=== PATIENT | male | born 1925 | race Caucasian/White ===

== ENCOUNTER 2016-12-01 03:25 | Inpatient (IN) | payer MEDICARE, OTHER ==
[~2016-12-01] VITALS: Ht 177.8 cm; Wt 87.7 kg
[2016-12-01] MEDS ORDERED: SODIUM CHLORIDE 0.9% 1L BAG IV* STA (03:38)
[2016-12-01] MEDS ORDERED: CEFEPIME 2GM/50 ML (PMX) 50 ML IVPB STA (03:38)
[2016-12-01] MEDS ORDERED: VANCOMYCIN 1 GM (PMX) 250 ML IVPB ONE (04:00)
[2016-12-01 04:22] LABS: ADD SCAN DIFF NO
[2016-12-01 04:27] LABS: ABNORMAL IP MESSAGE 1; HEMATOCRIT 39.6 % (42.0-52.0); HEMOGLOBIN 13.2 g/dl (14.0-18.0); MEAN CORPUSCULAR HEMOGLOBIN 31.8 pg (29.0-33.0); MEAN CORPUSCULAR HGB CONC 33.3 g/dl (32.0-37.0); MEAN CORPUSCULAR VOLUME 95.4 fl (82.0-101.0); MEAN PLATELET VOLUME 8.9 fl (7.4-10.4); PLATELET COUNT 153 10^3/UL (140-415); RED BLOOD COUNT 4.15 10^6/ul (4.70-6.10); RED CELL DISTRIBUTION WIDTH 14.8 % (11.5-14.5); WHITE BLOOD COUNT 6.9 10^3/ul (4.8-10.8)
[2016-12-01 04:28] LABS: ADD UMIC YES; URINE BLOOD (Dip) 3+ (NEGATIVE); URINE COLOR DK. RED (YELLOW); URINE KETONES (Dip) 3+ (NEGATIVE); URINE LEUKOCYTE ESTERASE (Dip) 3+ (NEGATIVE); URINE NITRITE (Dip) POSITIVE (NEGATIVE); URINE TOTAL PROTEIN (Dip) 4+ (NEGATIVE); URINE UROBILINOGEN (Dip) >8.0 E.U./dL (0.1-1.0)
[2016-12-01 04:36] LABS: URINE BILIRUBIN (Dip) NEGATIVE (NEGATIVE)
[2016-12-01 04:38] LABS: SQUAMOUS EPITHELIAL CELL,UR OCCASIONAL; URINE RBCS >200 /HPF (0)
[2016-12-01 04:39] LABS: BACTERIA,URINE MODERATE
[2016-12-01 04:45] LABS: ALBUMIN 3.3 g/dl (3.3-4.9)
[2016-12-01 04:48] LABS: CREATININE 1.11 mg/dl (0.61-1.24)
--- NOTE | 2016-12-01 04:48 | ERA ---
ER Documentation Chief Complaint Date/Time DATE: 12/01/16 TIME: 04:42 Chief Complaint ALOC, VOMITING WITH BLOOD X 1, PATIENT PULLED OUT CATHETER PER EMS HPI This is an 89-year-old group home patient sent for fever with altered level of consciousness. Patient apparently had an indwelling Mandel catheter that he pulled out. Patient has some dementia but he did say that he pulled on his catheter and had some bleeding from the penis he also says that he is having some dysuria since he did this. The group home reports that he vomited once with blood streaks. The patient denies this however he does have some dementia. Currently he is denying any chest pain breathing difficulty abdominal pain diarrhea. Is a very poor historian. ROS All systems reviewed and are negative except as per history of present illness. Medications Home Meds Reported Medications Famotidine/Ca Carb/Mag Hydrox (TUMS DUAL ACTION TABLET CHEW) 1 Each Tab.chew, 1 EACH PO, TAB.CHEW 12/01/16 Guaifenesin-Dextromethorphan* (Robitussin* DM) 100MG/10MG/5ML Syrup, 5 ML PO Q8 , ML 12/01/16 Zolpidem Tartrate* (Zolpidem Tartrate*) 5 Mg Tablet, 5 MG PO QHS Y for INSOMNIA , #30 TAB 12/01/16 Albuterol Sulfate* (Albuterol Sulfate* Neb) 0.083%-3 Ml Neb, 2.5 MG NEB Q4H for SHORTNESS OF BREATH, #30 VIAL 12/01/16 Mirtazapine* (Remeron*) 15 Mg Tablet, 15 MG PO HS for DEPRESSION , TAB 12/01/16 Clonazepam* (Klonopin*) 0.5 Mg Tab, 0.25 MG PO BID for ANXIETY, TAB 12/01/16 Allergies Allergies: Coded Allergies: amlodipine (Verified Allergy, Unknown, 12/01/16) PMhx/Soc Hx Respiratory Disorders: Yes (pneumonia, copd) Hx Cardiac Disorders: Yes (htn, afib) Hx Psychiatric Problems: Yes (anxiety) Hx Miscellaneous Medical Probl: Yes (bph, renal insufficiency, hypothyroidism) Hx Alcohol Use: No Hx Substance Use: No Hx Tobacco Use: No Smoking Status: Unknown if ever smoked FmHx Unable to clearly obtain due to his dementia Family History: No coronary disease Physical Exam Vitals Vital Signs Date Time Temp Pulse Resp B/P Pulse Ox O2 Delivery O2 Flow Rate FiO2 12/01/16 05:16 72 16 132/50 98 Nasal Cannula 2.0 12/01/16 04:21 71 16 106/37 96 Nasal Cannula 2.0 12/01/16 04:21 Nasal Cannula 2 12/01/16 03:31 102.3 73 13 114/101 92 Physical Exam Const: Well-developed, well-nourished Head: Atraumatic, normocephalic Eyes: Normal Conjunctiva, PERRLA, EOMI, normal sclera, no nystagmus ENT: Normal External Ears, Nose and Mouth, moist mucus membranes. Neck: Full range of motion. No meningismus, no lymphadenopathy. Resp: Clear to auscultation bilaterally, no wheezing, rhonchi, rales Cardio: Regular rate and rhythm, no murmurs, S1 S2 present Abd: Soft, some mild suprapubic tenderness 4, non distended. Normal bowel sounds, no guarding or rebound, no pulsitile abdominal masses or bruits, no blood at the urethral meatus Skin: No petechiae or rashes, no ecchymosis , no maculopapular rash Back: No midline or flank tenderness Ext: No cyanosis, or edema, FROM x 4, normal inspection, neurovascularly intact x 4 Neur: Awake and alert, STR 5/5 x 4, sensation intact x 4, no focal findings, cerebellum intact Psych: Normal Mood and Affect Result Diagram: 12/01/16 0350 12/01/16 0350 Results 24 hrs Laboratory Tests Test 12/01/16 03:50 12/01/16 04:07 12/01/16 05:05 White Blood Count 6.910^3/ul Red Blood Count 4.1510^6/ul Hemoglobin 13.2g/dl Hematocrit 39.6% Mean Corpuscular Volume 95.4fl Mean Corpuscular Hemoglobin 31.8pg Mean Corpuscular Hemoglobin Concent 33.3g/dl Red Cell Distribution Width 14.8% Platelet Count 95160^3/UL Mean Platelet Volume 8.9fl Neutrophils % 85.0% Band Neutrophils % 6.0% Lymphocytes % 1.0% Monocytes % 2.0% Eosinophils % 6.0% Neutrophils # 5.910^3/ul Lymphocytes # 0.110^3/ul Monocytes # 0.110^3/ul Eosinophils # 0.410^3/ul Sodium Level 138mmol/L Potassium Level 4.0mmol/L Chloride Level 103mmol/L Carbon Dioxide Level 24mmol/L Anion Gap 15 Blood Urea Nitrogen 21mg/dl Creatinine 1.11mg/dl Glucose Level 84mg/dl Lactic Acid Level 3.7mmol/L 3.0mmol/L Calcium Level 8.8mg/dl Total Bilirubin 1.0mg/dl Direct Bilirubin 0.00mg/dl Indirect Bilirubin 1.0mg/dl Aspartate Amino Transf (AST/SGOT) 19IU/L Alanine Aminotransferase (ALT/SGPT) 24IU/L Alkaline Phosphatase 79IU/L Troponin I 0.019ng/ml Total Protein 6.6g/dl Albumin 3.3g/dl Globulin 3.30g/dl Albumin/Globulin Ratio 1.00 Urine Color DK. RED Urine Clarity TURBID Urine pH 8.0 Urine Specific [place] 1.010 Urine Ketones 3+ Urine Nitrite POSITIVE Urine Bilirubin NEGATIVE Urine Urobilinogen >8.0 E.U./dL Urine Leukocyte Esterase 3+ Urine Microscopic RBC >200/HPF Urine Microscopic WBC >50/HPF Urine Squamous Epithelial Cells OCCASIONAL Urine Amorphous Phosphates FEW Urine Bacteria MODERATE Urine Hemoglobin 3+ Urine Glucose 0.1%% Urine Total Protein 4+ Current Medications Medications (Trade) Dose Ordered Sig/Wyatt Route PRN Reason Start Time Stop Time Status Last Admin Dose Admin Sodium Chloride 2510 ml 2,510 ml BOLUS OVER 2 HOURS STAT IV* 12/01/16 03:38 12/01/16 03:41 DC 12/01/16 04:12 Cefepime HCl 50 ml @ 100 mls/hr ONCE STAT IVPB 12/01/16 03:38 12/01/16 04:07 DC 12/01/16 04:14 Vancomycin HCl (Vancocin) 250 ml @ 125 mls/hr ONCE ONCE IVPB 12/01/16 04:00 12/01/16 05:59 12/01/16 04:47 Procedures/MDM EKG: Rate/Rhythm: Normal sinus rhythm left axis deviation right bundle branch block QRS, ST, QT: NORMAL [place], QRS, QT] Impression: Abnormal l EKG PROCEDURE: XR Chest. CLINICAL INDICATION: Sepsis TECHNIQUE: Portable single view of the chest COMPARISON: None. FINDINGS: Cardiomegaly is seen. The aorta is ectatic and tortuous. There is prominence of the right greater than left paratracheal soft tissues. Rounded retrocardiac opacity likely represents a moderately large hiatal hernia. Slight bibasilar crowding. No definite acute infiltrate, pleural effusion, or overt congestive heart failure. Mild degenerative change of the spine. IMPRESSION: Cardiomegaly and ectatic aorta. Prominent right greater left paratracheal soft tissues may be due to ectatic vasculature, goiter, or adenopathy. CT could be obtained as indicated clinically. Probable goiter. Slight bibasilar crowding. RPTAT: HLBE Physician Zelalem Date Time Electronically viewed and signed by Beatriz Constantino Physician on 12/01/2016 05 :31 LE/ CC: EDUARD FRANKLIN DO Admit MDM: Patient's infectious symptoms have not stabilized and the patient is at risk of rapid decompensation. The patient will be admitted for careful hydration, antibiotic therapy, and infectious source control. Severe Sepsis criteria: Infectious source: urine End organ damage indicated by: [] Lactate > 2.0 mmol/L Hypotension (SBP < 90 or >40 mmHG drop or MAP < 65) Acute Resp Failure (sat < 92% w/o oxygen) Stone Dresser > 2.0 INR > 1.5 Plt < 100 Bili > 2 Sepsis Management: Time of recognition of severe sepsis/septic shock: [05 40 Within 3 hours of recognition: Blood cultures x 2 before broad-spectrum antibiotics: []Yes 30 ml/kg NS bolus []Completed Initial lactate 3.7 Repeat lactate 3.0 Septic Shock Assessment: Any lactic acid > 4.0 []No Persistent hypotension (SBP < 90 or 40 mmHg drop, MAP < 65) despite 30 mL/kg IV fluid bolus []No Persistent Hypotension Treatment: Comfort care []No Hypotension caused by: pt. baseline, med-induced, erroneous value, condition other than infection []No Refusal by patient/decision maker for: blood draw, IVF, Antibiotics, Pressors [* ]No Accepting Care Team Current data and ongoing care discussed. Time: [] Admitting Physician: patrick Filter Changing Technician(s): Outstanding Data: []None Critical Care Time: 35 minutes Treatments/Evaluations: Close monitoring and treatment of unstable vital signs, cardiorespiratory, and neurologic status, while maintaining tight balance of fluid, respiratory, and cardiac interventions. This includes the administration of emergency fluid management while maintaining close respiratory support as well as the provision of immediate and broad-spectrum antibiotic therapy, while performing a simultaneous assessment for possible sources in order to direct targeted therapy. This time includes discussing the case with the patient and the patient's family. This time also includes the consideration for invasive and chemical support to prevent cardiopulmonary collapse. This time does not include all procedures stated elsewhere in this record. This time also includes reviewing old records, labs and radiological studies. This time includes examining and re-examining the patient. Additionally, this time also includes arranging care with admitting and consulting physicians. Departure Diagnosis: Primary Impression: Sepsis Qualified Code: A41.9 - Sepsis, due to unspecified organism Additional Impression: Urinary tract infection Qualified Code: N30.01 - Acute cystitis with hematuria Condition: Stable EDUARD FRANKLIN DO December 01, 2016 04:48
[2016-12-01 04:49] LABS: CALCIUM 8.8 mg/dl (8.4-10.2); TOTAL PROTEIN 6.6 g/dl (6.1-8.1)
[2016-12-01 04:57] LABS: EOSINOPHILS # 0.4 10^3/ul (0.0-0.5); LYMPHOCYTES # 0.1 10^3/ul (0.8-2.9); MONOCYTE # 0.1 10^3/ul (0.3-0.9); NEUTROPHIL # 5.9 10^3/ul (1.6-7.5)
[2016-12-01 05:00] LABS: TROPONIN-I 0.019 ng/ml (0.00-0.12)
--- NOTE | 2016-12-01 05:31 | RADRPT ---
PROCEDURE: XR Chest. CLINICAL INDICATION: Sepsis TECHNIQUE: Portable single view of the chest COMPARISON: None. FINDINGS: Cardiomegaly is seen. The aorta is ectatic and tortuous. There is prominence of the right greater than left paratracheal soft tissues. Rounded retrocardiac opacity likely represents a moderately la rge hiatal hernia. Slight bibasilar crowding. No definite acute infiltrate, pleural effusion, or o vert congestive heart failure. Mild degenerative change of the spine. IMPRESSION: Cardiomegaly and ectatic aorta. Prominent right greater left paratracheal soft tissues may be due t o ectatic vasculature, goiter, or adenopathy. CT could be obtained as indicated clinically. Probab le goiter. Slight bibasilar crowding. RPTAT: HLBE Physician Zelalem Date Time Electronically viewed and signed by Beatriz Constantino Physician on 12/01/2016 05:31 LE/
[2016-12-01] MEDS ORDERED: ZOLP5TAB7 PO (05:45)
[2016-12-01] MEDS ORDERED: MIRT15TA PO (05:45)
[2016-12-01] MEDS ORDERED: UDROBDM PO (05:45)
[2016-12-01] MEDS ORDERED: FAMO1TAB3 PO (05:45)
[2016-12-01] MEDS ORDERED: CLON-429 PO (05:45)
[2016-12-01] MEDS ORDERED: ALBU2.5V3 NEB (05:45)
[2016-12-01] MEDS ORDERED: SOD CHLORIDE 0.9% 1,000 ML IV SCH (05:58)
[2016-12-01] MEDS ORDERED: ACETAMINOPHEN 500 MG TAB PO STA (05:58)
[2016-12-01] MEDS ORDERED: GABA300C16 PO (06:00)
[2016-12-01] MEDS ORDERED: TAMS0.4C2 PO (06:00)
[2016-12-01] MEDS ORDERED: HYDR-3672 PO (06:00)
[2016-12-01] MEDS ORDERED: ATOR10TA65 PO (06:00)
[2016-12-01] MEDS ORDERED: ONDANSETRON 4 MG INJ IV PRN ×2 (06:00→09:30)
[2016-12-01] MEDS ORDERED: MAG-19 PO (06:00)
[2016-12-01] MEDS ORDERED: HALOPERIDOL 5 MG INJ IM ONE (06:00)
[2016-12-01] MEDS ORDERED: ATEN50TA PO (06:00)
[2016-12-01] MEDS ORDERED: ACETAMINOPHEN 325 MG TAB PO PRN ×2 (06:00→09:30)
[2016-12-01] MEDS ORDERED: MULT-105 PO (06:00)
[2016-12-01] MEDS ORDERED: CLON1PAT2 TD (06:00)
[2016-12-01] MEDS ORDERED: UDMYL PO (06:00)
[2016-12-01] MEDS ORDERED: LEVO75TA5 PO (06:00)
[2016-12-01 06:01] LABS: INR 1.17; PT RATIO 1.2
[2016-12-01 06:02] LABS: PARTIAL THROMBOPLASTIN TIME 27.7 Sec (25.0-35.0)
[2016-12-01] MEDS ORDERED: LEVO750T25 PO (06:06)
[2016-12-01 06:10] VITALS: TEMP 101
--- NOTE | 2016-12-01 08:33 | HP ---
DATE OF ADMISSION: 12/01/2016 TIME SEEN: 6:30 a.m. CHIEF COMPLAINT: Fever, altered mentation, and vomiting blood. HISTORY OF PRESET ILLNESS: The patient is an 89-year-old male with a history of hypertension, AFib, COPD, anxiety, BPH, hypothyroidism who was sent from a long term facility for altered mentati on and fever. The patient also has dementia and he is at times hard to understand, so information h as also been gathered from the chart review and from the ER physician. The patient also reported crawford ambreen had episodes of vomiting blood. He also pulled out his Mandel catheter and reportedly there was some bleeding from his penis. When the patient presented to the ER, he was febrile with a temperature of 102.3 and his oxygen satu ration was 92% on room air. Laboratory values show his CBC and CMP are within acceptable range. Hi s initial lactic acid of 3.7, repeat was 3. Urinalysis is consistent with a UTI. Chest x-ray shows cardiomegaly and ectatic aorta. A prominent right greater than left paratracheal soft tissue may b e due to ectopic vasculature, goiter, or adenopathy. The patient was started on vancomycin and cefe pime and was started on weight-based IV fluids. He was also given 1 g of Tylenol. REVIEW OF SYSTEMS: Unable to fully assess, but negative except as mentioned in the HPI. PAST MEDICAL HISTORY: As per HPI. SOCIAL HISTORY: Unknown. ALLERGIES: AMLODIPINE. MEDICATIONS: 1. Tamsulosin. 2. Albuterol. 3. Atenolol. 4. Lipitor. 5. Clonidine patch. 6. Hydralazine. 7. Klonopin. 8. Gabapentin. 9. Mirtazapine. 10. Ambien. 11. Robitussin 12. Mylanta. 13. Levothyroxine. PHYSICAL EXAMINATION: VITAL SIGNS: Blood pressure 130/64, heart rate 80, respiratory rate 16, temperature 101, oxygen sat uration 100% on 2 L. GENERAL: The patient lying in bed, initially was sleepy, but arousable. Not fully oriented. HEENT: No obvious head deformity. Extraocular muscles intact. CARDIOVASCULAR: Regular rate and rhythm with no extra sounds. LUNGS: Slightly diminished breath sounds anteriorly, but without any wheezing, rhonchi, or rales. ABDOMEN: Soft. There is some tenderness diffusely with no guarding, no rebound tenderness. No rig idity. EXTREMITIES: No edema. NEUROLOGIC: No focal deficits. LABORATORY DATA: Pertinent positives results as mentioned in the HPI. IMAGING: Chest x-ray with results as mentioned in the HPI. IMPRESSION: 1. Sepsis, secondary to urinary tract infection. 2. Altered mentation, secondary to above. Note that the patient does have a history of dementia. 3. History of hypertension. 4. History of atrial fibrillation. 5. History of BPH. 6. History of hypothyroidism. 7. History of chronic obstructive pulmonary disease. PLAN: The patient will be placed on antibiotics. We will follow up on the blood culture and urine culture results. We will trend his lactic acid. He will receive IV fluids. We will continue his h ome medication with adjustment as needed. The patient does have a history of dementia, and I am not quite sure what his baseline is or whether or not there is a significant change in his altered ment ation. Based on the clinical course and trying to get a hold of family, will consider imaging his b rain. Further workup and management per clinical course. Dictated By: WILBERTO BRANDON/TROY Conf#: [id number] DID#: [id number]
[2016-12-01] MEDS ORDERED: LORAZEPAM 2 MG INJ IV PRN (09:30)
[2016-12-01] MEDS: ATENOLOL 50 MG TAB PO SCH (09:30)
[2016-12-01] MEDS ORDERED: morphine 2 MG INJ IV PRN (09:30)
[2016-12-01] MEDS ORDERED: ALBUTEROL/IPRATROPIUM (NEB) 3 ML AMP HHN PRN (09:30)
[2016-12-01] MEDS ORDERED: NACL 0.9% 3 ML SYG IV SCH (09:30)
[2016-12-01] MEDS ORDERED: ZOLPIDEM 5 MG TAB PO PRN (09:30)
[2016-12-01] MEDS: clonAZEPAM 0.5 MG TAB PO SCH ×2 (09:30→21:35)
[2016-12-01] MEDS: ALBUTEROL 0.083% (NEB) 2.5 MG/3 ML AMP NEB SCH ×4 (09:56→20:20)
[2016-12-01] MEDS ORDERED: AL HYDROX/MG HYDROX/SIMETH 30 ML CUP PO SCH (12:00)
[2016-12-01 14:16] VITALS: BP 132/60; PULSE 65; RESP 18
[2016-12-01 16:05] VITALS: Ht 177.8 cm; Wt 87.7 kg
[2016-12-01] MEDS: AL HYDROX/MG HYDROX/SIMETH 30 ML CUP PO SCH ×3 (17:00→21:41)
--- NOTE | 2016-12-01 18:12 | CONS ---
DATE OF ADMISSION: 12/01/2016 DATE OF CONSULTATION: 12/01/2016 TYPE OF CONSULTATION: Infectious Disease. REASON FOR CONSULTATION: Antibiotic management. HISTORY OF PRESENT ILLNESS: Catrachito Willssin is an 89-year-old male with numerous problems who comes in with fever and altered mentation as well as vomiting of blood. His problems include: 1. Hypertension. 2. Atrial fibrillation. 3. COPD. 4. Anxiety. 5. Benign prostatic hypertrophy. 6. Hypothyroidism. The patient was sent from the senior care facility with as noted fever and altered mentation. 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 He had episodes of vomiting blood. He also pulled out his Mandel cathet er. In the emergency room, his temperature was 102.3, O2 saturation was 92% on room air. His lacti c acid was 3.7. White count was 6.9, H and H of 13.2 and 39.6, platelet count 153,000. BUN and cre atinine 21/1.1. Urinalysis showed 3+ leukocyte esterase, greater than 50 white cells per high-power field and greater than 200 RBCs. A chest x-ray showed cardiomegaly and ectasia of the aorta, promi nent right greater than left paratracheal soft tissues may be due to ectatic vasculature, adenopathy , probable goiter, slight bibasilar crowding. PAST MEDICAL HISTORY: As outlined. FAMILY HISTORY: Noncontributory. SOCIAL HISTORY: Not known. MEDICATIONS: Per chart. ALLERGIES: NONE TO PENICILLIN, SULFA OR FOODS. HE IS ALLERGIC TO AMLODIPINE. REVIEW OF SYSTEMS: As per HPI. PHYSICAL EXAMINATION: GENERAL: The patient is an elderly appearing male who is confused, sleepy but arousable, in no acut e distress. VITAL SIGNS: His temperature max is 102.3. SKIN: Without generalized rash. HEENT: Within normal limits. NECK: Supple. LYMPH NODES: None palpable. CHEST: Decreased breath sounds at the bases. HEART: Without murmur or gallop. ABDOMEN: Soft, slightly tender without organosplenomegaly or masses. EXTREMITIES: Without cyanosis, clubbing, or edema. RECTAL AND GENITAL: Deferred. NEUROLOGIC: No focal neurological abnormalities. LABORATORY DATA: As noted. IMPRESSION AND PLAN: The patient comes in with sepsis secondary to urinary tract infection. He was started on vancomycin and cefepime. There is nothing long-term. We will continue him on cefepime 1 gram q.12h. I will dictate my findings to the hospitalist. Dictated By: LANA VINCENT MD, JD/TROY Conf#: [id number] DID#: [id number]
[2016-12-01] MEDS: GUAIFENESIN/DM 5ML CUP PO SCH ×2 (18:25→21:45)
[2016-12-01] MEDS ORDERED: CEFEPIME 1GM/50 ML (PMX) 50 ML IVPB SCH (18:30)
[2016-12-01 19:35] VITALS: BP 135/63; RESP 20
[2016-12-01] MEDS: ATORVASTATIN 10 MG TAB PO SCH (21:34)
[2016-12-01] MEDS: MIRTAZAPINE 15 MG TAB PO SCH (21:35)
[2016-12-01 21:40] VITALS: BP 109/55; PULSE 68
[2016-12-02] MEDS: ALBUTEROL 0.083% (NEB) 2.5 MG/3 ML AMP NEB SCH ×6 (01:34→20:05)
[2016-12-02 05:38] LABS: ADD SCAN DIFF NO
[2016-12-02 05:40] LABS: BASOPHILS % 0.1 % (0.0-2.0); EOSINOPHILS # 0.1 10^3/ul (0.0-0.5); EOSINOPHILS % 0.3 % (0.0-7.0); HEMOGLOBIN 10.2 g/dl (14.0-18.0); LYMPHOCYTES # 1.2 10^3/ul (0.8-2.9); LYMPHOCYTES % 5.7 % (15.0-51.0); MEAN CORPUSCULAR HEMOGLOBIN 32.2 pg (29.0-33.0); MEAN CORPUSCULAR VOLUME 94.6 fl (82.0-101.0); MEAN PLATELET VOLUME 9.2 fl (7.4-10.4); MONOCYTE # 0.8 10^3/ul (0.3-0.9); MONOCYTES % 3.7 % (0.0-11.0); NEUTROPHIL # 18.1 10^3/ul (1.6-7.5); NEUTROPHILS % 88.1 % (39.0-77.0); PLATELET COUNT 122 10^3/UL (140-415); RED BLOOD COUNT 3.17 10^6/ul (4.70-6.10); RED CELL DISTRIBUTION WIDTH 15.2 % (11.5-14.5); WHITE BLOOD COUNT 20.5 10^3/ul (4.8-10.8)
[2016-12-02 06:10] VITALS: BP 121/58; PULSE 69
[2016-12-02] MEDS: GUAIFENESIN/DM 5ML CUP PO SCH ×3 (06:11→21:49)
[2016-12-02] MEDS: LEVOTHYROXINE 75 MCG TAB PO SCH (06:11)
[2016-12-02 06:16] LABS: ALBUMIN 2.5 g/dl (3.3-4.9); ALBUMIN/GLOBULIN RATIO 0.89; BILIRUBIN,INDIRECT 0.5 mg/dl (0-1.1); BILIRUBIN,TOTAL 0.5 mg/dl (0.2-1.3); CALCIUM 7.6 mg/dl (8.4-10.2); CHOL/HDL RATIO 2.5 RATIO; CREATININE 1.12 mg/dl (0.61-1.24); POTASSIUM 4.1 mmol/L (3.5-5.1); TOTAL PROTEIN 5.3 g/dl (6.1-8.1)
[2016-12-02 07:38] VITALS: BP 154/65; RESP 22
[2016-12-02] MEDS: GABAPENTIN 300 MG CAP PO SCH (08:43)
[2016-12-02] MEDS: TAMSULOSIN (SR) 0.4 MG CAP PO SCH (08:43)
[2016-12-02] MEDS: AL HYDROX/MG HYDROX/SIMETH 30 ML CUP PO SCH ×4 (08:43→20:17)
[2016-12-02] MEDS: ATENOLOL 50 MG TAB PO SCH (08:44)
[2016-12-02] MEDS: clonAZEPAM 0.5 MG TAB PO SCH ×2 (08:46→20:17)
--- NOTE | 2016-12-02 12:54 | RADRPT ---
PROCEDURE: XR Chest. CLINICAL INDICATION: Chest pain. TECHNIQUE: Chest x-ray, single view. COMPARISON: 12/01/2016. FINDINGS: The heart is enlarged and unchanged in size. Aortic arch atherosclerotic calcification is present. Low lung volumes are observed. Basilar atelectatic changes are observed. Crowding of the pulmonary vasculature is observed. There is no focal pulmonary parenchymal opacification. IMPRESSION: Cardiomegaly. Low lung volumes with basilar atelectatic changes. RPTAT: HLST .Olivia Bruce MD, MD Date Time Electronically viewed and signed by .Olivia Bruce MD, MD on 12/02/2016 12:53 .T/
--- NOTE | 2016-12-02 14:15 | PN ---
DATE: 12/02/2016 INFECTIOUS DISEASE PROGRESS NOTE SUBJECTIVE: Patient is awake, complaining of epigastric pain. He also had diarrhea earlier. T-max 101.0, T-current 98.7. WBC today 20.5, H and H 10.2 and 30, platelets 122, neutrophils 88.1. No ba nds. BUN 23, creatinine 1.12. MICROBIOLOGY: Urine and blood cultures growing gram-negative rods. INDWELLINGS: Mandel catheter. DIAGNOSTICS: Chest x-ray this morning revealed bibasilar atelectasis and cardiomegaly. ANTIMICROBIALS: The patient is on Cefepime. PHYSICAL EXAMINATION: GENERAL: This is a fragile, chronically ill-appearing, elderly man, who is awake, in no distress. HEENT: Head atraumatic, normocephalic. Sclerae anicteric. Buccal mucosa dry. NECK: Supple. CHEST: Chest rise is symmetrical. Breath sounds diminished to the bases. HEART: S1, S2. ABDOMEN: Soft. Bowel sounds present. The patient has some pain on palpation over the epigastric a torito. EXTREMITIES: Without cyanosis. ASSESSMENT: 1. Severe sepsis with fevers, leukocytosis and bandemia present on admission. 2. Gram-negative rods urinary tract infection with bacteremia. 3. Diarrhea. Rule out Clostridium difficile colitis. 4. Atrial fibrillation. 5. Benign prostatic hypertrophy. 6. Chronic obstructive pulmonary disease. PLAN: We are going to send stool for Clostridium difficile, add empiric Flagyl, order a KUB, change cefepime to meropenem, and repeat blood cultures. We will follow on the final cultures and adjust antibiotics, based on results. Dictated By: JAHAIRA BOND ELECTROMECHANICAL ASSEMBLY TECHNICIAN for LANA ROBERTS/TROY Conf#: [id number] DID#: [id number]
--- NOTE | 2016-12-02 14:55 | PN ---
Date/Time of Note Date/Time of Note DATE: 12/02/16 TIME: 14:51 Assessment/Plan VTE Prophylaxis VTE Prophylaxis Intervention: SCD's Lines/Catheters [facility] Saline Lock Urinary Cath still in place: Yes Assessment/Plan Chief Complaint/Hosp Course Assessment and plan 1. Sepsis from UTI. ID consult following. Continue with antibiotics per ID recommendations. Of note preliminary culture was gram-negative. Follow-up on final cultures. 2. ALOC secondary to #1. Improving at present. Patient is also noted with underlying dementia. Continue to monitor 3. Essential hypertension. Continue antihypertensives as needed 4. Atrial fibrillation. Patient to be continued on beta-demond. 5. Hypothyroidism. Continue on Synthroid 6. COPD. No active bronchospasm noted at this time. Will monitor. 7. Dyslipidemia. Continue with statin medication 8. BPH. Continue on Flomax Disposition and plan: Follow-up on final urine cultures. Continue with antibiotics. Discharge when medically stable Discussed plan of care with Dr. Lorenz Problems: Subjective 24 Hr Interval Summary Free Text/Dictation Resting at this time. RN at bedside Exam/Review of Systems Vital Signs Vitals Vital Signs Date Time Temp Pulse Resp B/P Pulse Ox O2 Delivery O2 Flow Rate FiO2 12/02/16 12:01 69 26 96 Nasal Cannula 2.0 12/02/16 07:38 98.7 154/65 Intake and Output 12/01/16 12/01/16 12/02/16 15:00 23:00 07:00 Intake Total 1300 ml 400 ml Output Total 500 ml 300 ml Balance 800 ml 100 ml Exam Constitutional: alert Psych: nl mood/affect Neck: supple Respiratory: diminished breath sounds Cardiovascular: other Gastrointestinal: non-tender, soft (Regular rate) Musculoskeletal: swelling (Minimal bilateral lower extremity) Extremities: other (Forgetful) Results Result Diagram: 12/02/16 0520 12/02/16 0520 Results 24 hrs Laboratory Tests Test 12/02/16 05:20 12/02/16 10:40 12/02/16 10:57 12/02/16 12:08 White Blood Count 20.5 #H Red Blood Count 3.17 #L Hemoglobin 10.2 #L Hematocrit 30.0 #L Mean Corpuscular Volume 94.6 Mean Corpuscular Hemoglobin 32.2 Mean Corpuscular Hemoglobin Concent 34.0 Red Cell Distribution Width 15.2 H Platelet Count 122 #L Mean Platelet Volume 9.2 Neutrophils % 88.1 H Lymphocytes % 5.7 L Monocytes % 3.7 Eosinophils % 0.3 Basophils % 0.1 Nucleated Red Blood Cells % 0.0 Neutrophils # 18.1 H Lymphocytes # 1.2 Monocytes # 0.8 Eosinophils # 0.1 Basophils # 0.0 Nucleated Red Blood Cells # 0.0 Sodium Level 137 Potassium Level 4.1 Chloride Level 111 H Carbon Dioxide Level 22 Anion Gap 8 Blood Urea Nitrogen 23 H Creatinine 1.12 Glucose Level 80 Hemoglobin A1c 5.4 Calcium Level 7.6 L Total Bilirubin 0.5 Direct Bilirubin 0.00 Indirect Bilirubin 0.5 Aspartate Amino Transf (AST/SGOT) 16 Alanine Aminotransferase (ALT/SGPT) 24 Alkaline Phosphatase 48 Total Protein 5.3 #L Albumin 2.5 L Globulin 2.80 Albumin/Globulin Ratio 0.89 Triglycerides Level 67 Cholesterol Level 70 L LDL Cholesterol, Calculated 29 HDL Cholesterol 28 L Cholesterol/HDL Ratio 2.5 Stool Occult Blood NEGATIVE Lactic Acid Level 1.3 Troponin I 0.016 Medications Medications Current Medications Lorazepam (Ativan) 0.5 mg Q6H PRN IV ANXIETY; Start 12/01/16 at 09:30 Ondansetron HCl (Zofran Inj) 4 mg Q6H PRN IV NAUSEA AND/OR VOMITING; Start at 09:30 Acetaminophen (Tylenol Tab) 650 mg Q6H PRN PO PAIN LEVEL 1-3 OR FEVER Last administered on 12/02/16 00:45; Admin Dose 650 MG; Start 12/01/16 at 09:30 Morphine Sulfate (morphine) 2 mg Q4H PRN IV PAIN LEVEL 7-10 Last administered on 12/02/16 11:40; Admin Dose 2 MG; Start 12/01/16 at 09:30 Atenolol (Tenormin) 50 mg DAILY PO Last administered on 12/02/16 08:44; Admin Dose 50 MG; Start 12/01/16 at 09:30 Atorvastatin Calcium (Lipitor) 10 mg QHS PO Last administered on 12/01/16 21: 34; Admin Dose 10 MG; Start 12/01/16 at 21:00 Clonazepam (Klonopin) 0.25 mg BID PO Last administered on 12/02/16 08:46; Admin Dose 0.25 MG; Start 12/01/16 at 09:30 Gabapentin (Neurontin) 300 mg DAILY PO Last administered on 12/02/16 08:43; Admin Dose 300 MG; Start 12/02/16 at 09:00 Guaifenesin/ Dextromethorphan (Robitussin Dm Liquid Cup) 5 ml Q8 PO Last administered on 12/02/16 06:11; Admin Dose 5 ML; Start 12/01/16 at 14:00 Hydralazine HCl (Apresoline) 50 mg Q8 PO Last administered on 12/02/16 06:12; Admin Dose 50 MG; Start 12/01/16 at 14:00 Al Hydrox/Mg Hydrox/Simethicone (Mag-Al Plus) 30 ml QID PO Last administered on 12/02/16 08:43; Admin Dose 30 ML; Start 12/01/16 at 13:00 Mirtazapine (Remeron) 15 mg HS PO Last administered on 12/01/16 21:35; Admin Dose 15 MG; Start 12/01/16 at 21:00 Tamsulosin HCl (Flomax) 0.4 mg DAILY PO Last administered on 12/02/16 08:43; Admin Dose 0.4 MG; Start 12/02/16 at 09:00 Zolpidem Tartrate 5 mg 5 mg QHS PRN PO INSOMNIA; Start 12/01/16 at 09:30 Meropenem 100 ml @ 200 mls/hr Q12 IVPB ; Start 12/02/16 at 21:00 Metronidazole (Flagyl 500 Mg (Pmx)) 100 ml @ 100 mls/hr Q8 IVPB ; Start at 14:00 LORY OLSON December 02, 2016 14:55
[2016-12-02] MEDS: metroNIDAZOLE 500 MG/NS (PMX) 100 ML IVPB SCH ×2 (14:56→21:49)
--- NOTE | 2016-12-02 15:23 | RADRPT ---
Vent Rate: 73 bpm RR Interval: 0 msec [place] Interval: 200 msec QRS Duration: 94 msec QT Interval: 404 msec QTC Interval: 445 msec P-R-T [place]: 77 - -26 - -12 degrees Normal sinus rhythm Voltage criteria for left ventricular hypertrophy Abnormal ECG Electronically Signed By: Parminder Guillaume [id number]
--- NOTE | 2016-12-02 17:08 | RADRPT ---
PROCEDURE: XR Abdomen. CLINICAL INDICATION: Abdominal pain. TECHNIQUE: AP abdomen x-ray. COMPARISON: No. FINDINGS: There is a nonspecific bowel gas pattern with no evidence of a mechanical bowel obstruction. Air is identified in the colon and small bowel. The bony elements are normal. There are calcifications in the pelvis which are likely phleboliths. There are 2 calcifications projecting across the right il eum which may be the result of an old injection site bone island or not excluded appendicoliths. The right diaphragm is of the field of view. IMPRESSION: 1. Reflex ileus. No mechanical bowel obstruction is identified. RPTAT:AAJJ Physician Anjana Date Time Electronically viewed and signed by Physician Anjana on 12/02/2016 17:08 /
[2016-12-02 19:38] VITALS: BP 124/59; RESP 20
[2016-12-02] MEDS: ATORVASTATIN 10 MG TAB PO SCH (20:17)
[2016-12-02] MEDS: MEROPENEM 500 MG/100 ML (PMX) 100 ML IVPB SCH (20:17)
[2016-12-02] MEDS: MIRTAZAPINE 15 MG TAB PO SCH (20:17)
[2016-12-03] MEDS: ALBUTEROL 0.083% (NEB) 2.5 MG/3 ML AMP NEB SCH ×6 (00:49→20:11)
[2016-12-03] MEDS: metroNIDAZOLE 500 MG/NS (PMX) 100 ML IVPB SCH ×3 (05:15→23:21)
[2016-12-03 05:55] LABS: ADD SCAN DIFF NO
[2016-12-03 05:59] LABS: BASOPHILS % 0.2 % (0.0-2.0); EOSINOPHILS % 6.2 % (0.0-7.0); HEMATOCRIT 30.7 % (42.0-52.0); HEMOGLOBIN 10.2 g/dl (14.0-18.0); LYMPHOCYTES % 12.3 % (15.0-51.0); MEAN CORPUSCULAR HEMOGLOBIN 31.6 pg (29.0-33.0); MEAN CORPUSCULAR HGB CONC 33.2 g/dl (32.0-37.0); MEAN PLATELET VOLUME 9.7 fl (7.4-10.4); MONOCYTE # 0.7 10^3/ul (0.3-0.9); MONOCYTES % 4.6 % (0.0-11.0); NEUTROPHIL # 12.3 10^3/ul (1.6-7.5); NEUTROPHILS % 76.1 % (39.0-77.0); PLATELET COUNT 119 10^3/UL (140-415); RED BLOOD COUNT 3.23 10^6/ul (4.70-6.10); RED CELL DISTRIBUTION WIDTH 15.2 % (11.5-14.5); WHITE BLOOD COUNT 16.2 10^3/ul (4.8-10.8)
[2016-12-03] MEDS: GUAIFENESIN/DM 5ML CUP PO SCH ×3 (06:04→21:30)
[2016-12-03] MEDS: LEVOTHYROXINE 75 MCG TAB PO SCH (06:04)
[2016-12-03 06:27] LABS: CREATININE 0.82 mg/dl (0.61-1.24); POTASSIUM 4.2 mmol/L (3.5-5.1)
[2016-12-03 07:40] VITALS: BP 140/64; RESP 18
[2016-12-03] MEDS: AL HYDROX/MG HYDROX/SIMETH 30 ML CUP PO SCH ×4 (08:50→21:30)
[2016-12-03] MEDS: MEROPENEM 500 MG/100 ML (PMX) 100 ML IVPB SCH ×2 (08:50→21:30)
[2016-12-03] MEDS: GABAPENTIN 300 MG CAP PO SCH (08:50)
[2016-12-03] MEDS: TAMSULOSIN (SR) 0.4 MG CAP PO SCH (08:51)
[2016-12-03] MEDS: ATENOLOL 50 MG TAB PO SCH (08:51)
[2016-12-03] MEDS: clonAZEPAM 0.5 MG TAB PO SCH (08:51)
--- NOTE | 2016-12-03 11:24 | CONS ---
Date/Time of Note Date/Time of Note DATE: 12/03/16 TIME: 11:23 Assessment/Plan Assessment/Plan Chief Complaint/Hosp Course ID PROGRESS NOTE CURRENT ABX: Merrem + Flagyl IV 24H INTERVAL SUMMARY * [age] M, napping w/supplemental O2 via NC * Low grade tempt 99.6, VSS, NAD, without dyspnea * MICRO: (+)) C.Diff; (+)UTI GNR Proteus w/(+)BCx * Organism 1 PROTEUS MIRABILIS P. MIRAB M.I.C. RX --------- --- AMPICILLIN >=32 R CEFOTAXIME R CIPROFLOXACIN >=4 R GENTAMICIN <=1 S IMIPENEM 1 S LEVOFLOXACIN >=8 R TOBRAMYCIN <=1 S TRIMETHOPRIM/SULFAMETHOXAZOLE >=320 R PIPERACILLIN/TAZOBACTAM <=4 S PHYSICAL EXAMINATION: VITAL SIGNS: Afebrile, VSS, NAD GENERAL: Looks comfortable HEENT: Unremarkable NECK: LUNGS: Equal chest rise without dyspnea on observation HEART: RRR ABDOMEN: Soft, EXTREMITIES: Warm SKIN: Intact NEUROLOGICAL: ID IMPRESSION: 89 yo M admit with: 1. Severe sepsis with fevers, leukocytosis and bandemia present on admission. 2. Gram-negative rods urinary tract infection with bacteremia. * Organism 1 PROTEUS MIRABILIS P. MIRAB 3. (+)C.Diff Colitis 4. Atrial fibrillation. 5. Benign prostatic hypertrophy. 6. Chronic obstructive pulmonary disease. (-) MRSA Nares INVASIVES: PIV CURRENT ABX: Merrem + Flagyl IV ID RECOMMENDATION 1. Continue current ABX + Add Vanco Liquid PO . Problems: Consultation Date/Type/Reason Admit Date/Time December 01, 2016 at 06:00 Initial Consult Date Exam/Review of Systems Vital Signs Vitals Vital Signs Date Time Temp Pulse Resp B/P Pulse Ox O2 Delivery O2 Flow Rate FiO2 12/03/16 08:02 68 18 96 Nasal Cannula 2.0 12/03/16 07:40 99.6 140/64 Intake and Output 12/02/16 12/02/16 12/03/16 15:00 23:00 07:00 Intake Total 720 ml 440 ml Output Total 500 ml 500 ml Balance 220 ml -60 ml Results Result Diagram: 12/03/16 0510 12/03/16 0510 Results 24 hrs Laboratory Tests Test 12/02/16 12:08 12/02/16 18:00 12/02/16 23:30 12/03/16 05:10 Troponin I 0.016 < 0.012 < 0.012 White Blood Count 16.2 #H Red Blood Count 3.23 L Hemoglobin 10.2 L Hematocrit 30.7 L Mean Corpuscular Volume 95.0 Mean Corpuscular Hemoglobin 31.6 Mean Corpuscular Hemoglobin Concent 33.2 Red Cell Distribution Width 15.2 H Platelet Count 119 L Mean Platelet Volume 9.7 Neutrophils % 76.1 Lymphocytes % 12.3 L Monocytes % 4.6 Eosinophils % 6.2 Basophils % 0.2 Nucleated Red Blood Cells % 0.0 Neutrophils # 12.3 H Lymphocytes # 2.0 Monocytes # 0.7 Eosinophils # 1.0 H Basophils # 0.0 Nucleated Red Blood Cells # 0.0 Sodium Level 135 Potassium Level 4.2 Chloride Level 110 Carbon Dioxide Level 22 Anion Gap 7 L Blood Urea Nitrogen 17 Creatinine 0.82 Glucose Level 78 Calcium Level 8.0 L Medications Medications Current Medications Ondansetron HCl (Zofran Inj) 4 mg Q6H PRN IV NAUSEA AND/OR VOMITING; Start at 09:30 Acetaminophen (Tylenol Tab) 650 mg Q6H PRN PO PAIN LEVEL 1-3 OR FEVER Last administered on 12/02/16 00:45; Admin Dose 650 MG; Start 12/01/16 at 09:30 Atenolol (Tenormin) 50 mg DAILY PO Last administered on 12/03/16 08:51; Admin Dose 50 MG; Start 12/01/16 at 09:30 Atorvastatin Calcium (Lipitor) 10 mg QHS PO Last administered on 12/02/16 20: 17; Admin Dose 10 MG; Start 12/01/16 at 21:00 Gabapentin (Neurontin) 300 mg DAILY PO Last administered on 12/03/16 08:50; Admin Dose 300 MG; Start 12/02/16 at 09:00 Guaifenesin/ Dextromethorphan (Robitussin Dm Liquid Cup) 5 ml Q8 PO Last administered on 12/03/16 06:04; Admin Dose 5 ML; Start 12/01/16 at 14:00 Hydralazine HCl (Apresoline) 50 mg Q8 PO Last administered on 12/03/16 06:04; Admin Dose 50 MG; Start 12/01/16 at 14:00 Al Hydrox/Mg Hydrox/Simethicone (Mag-Al Plus) 30 ml QID PO Last administered on 12/03/16 08:50; Admin Dose 30 ML; Start 12/01/16 at 13:00 Mirtazapine (Remeron) 15 mg HS PO Last administered on 12/02/16 20:17; Admin Dose 15 MG; Start 12/01/16 at 21:00 Tamsulosin HCl 0.4 mg 0.4 mg DAILY PO Last administered on 12/03/16 08:51; Admin Dose 0.4 MG; Start 12/02/16 at 09:00 Meropenem 100 ml @ 200 mls/hr Q12 IVPB Last administered on 12/03/16 08:50; Admin Dose 200 MLS/HR; Start 12/02/16 at 21:00 Metronidazole (Flagyl 500 Mg (Pmx)) 100 ml @ 100 mls/hr Q8 IVPB Last administered on 12/03/16 05:15; Admin Dose 100 MLS/HR; Start 12/02/16 at 14:00 STEFAN NIETO NP December 03, 2016 11:23
--- NOTE | 2016-12-03 11:46 | CONS ---
DATE OF ADMISSION: 12/01/2016 DATE OF CONSULTATION: 12/03/2016 TYPE OF CONSULTATION: Palliative care. TIME: 10:14 hours. HISTORY OF PRESENT ILLNESS: This is entirely taken from the patient's medical record as patient is a non-historian and has moderate dementia, but essentially, he is an 89-year-old gentleman who was b rought in to [facility] sent from a [place] [facility] unit altered. He was found to be febrile with a temperature of 102. Initial lactic acid was 3.7 and the patient was started off on broad spectrum IV antibiotic coverage for sepsis syndrome. The patient is alone. There are no family members. I can ascertain some information from him. He s ays he has two children, one is . The other one he has not seen in some 7 years. His has Alzheimers and he lives in a [place] [facility] unit. Other than that, I cannot obtain much either clinical information or past medical history from this gentleman or psychosocial information. I am asked to speak to the patient and try and find out some information insofar as his goals of car e. There are no participants. There is no one immediately available to speak on his behalf. I have an incomplete database insofar as his background and social history, although my understanding is he is cognitively improving since admission. He has no clear understanding of why he was admitted to the hospital. We do not know what his acceptable quality of life is. There is no one once again to speak on his behalf. Cultural issues may be very strong. This gentleman has a very strong accent an d states he hails from [place]. This is to be explored in more detail. PHYSICAL EXAMINATION: GENERAL: Shows an ashen-appearing male who is in no major acute distress, difficult to arouse him i nitially. Once aroused, he does follow me, track me, answer, but he confabulates. Difficult to ge t him to focus once again. VITAL SIGNS: His blood pressure 140/64, pulse is 68 and regular, respirations of 18, temperature 99 .6 degrees, 96% saturation on 2 liters. HEENT: He is normocephalic and atraumatic. Anicteric, acyanotic on examination. CHEST: Distant breath sounds throughout both lung clifford. COR: S1, S2, without S3, S4, murmur, gallop, rub. Normal rate, normal rhythm. ABDOMEN: On examination, abdomen grossly benign. NEUROLOGIC EXAMINATION: He is oriented x 1, name only. Otherwise, cranial nerves II-XII are grossly intact. Motor and sensory findings grossly within normal limits. EXTREMITIES: Grossly without clubbing, cyanosis or edema. LABORATORY TESTS: White blood cell count of 16.2, hemoglobin 10.2, hematocrit 30.7, MCV of 95.0, pl atelet count of 119,000. Chemistries: Serum sodium 135, potassium 4.2, chloride 110, bicarbonate 2 2, BUN of 17, creatinine 0.82. MEDICATIONS: Once again, please refer to reconciliation, but palliative medications as reviewed in t he patient's medical records: 1. Klonopin. 2. Lorazepam. 3. Morphine. ASSESSMENT AND PLAN: This is a moderately to severely demented gentleman who is a non-historian. F or palliative information, please refer to History of Present Illness. I will try and find family m embers with the help of social work service and case management. Issues: Other issues to be addressed and most importantly are who speaks on this gentleman's behalf , who is the participant, who is the agent for him. He is FULL CODE. I believe that is ominous. T his gentleman at 89 years old stands a very high probability chance for chronic readmissions until d [facility], so those legal and ethical issues will be addressed. His code status has to remain as is, FULL CODE, until we find someone who can speak on his behalf. Otherwise, we should address his code sta tus with bioethics consultation prior to discharge. At this time, because he has a high probability chance for altered mental status, I will stop any centrally acting drugs includin. Ambien. 2. Morphine. 3. Lorazepam. 4. Klonopin. Gabapentin will continue at this time. I will discuss with Gordon Mora NP the patient's primary director critical care. Dictated By: MARTA BARR MD, LP/TROY Conf#: [id number] DID#: [id number]
--- NOTE | 2016-12-03 15:35 | PN ---
Date/Time of Note Date/Time of Note DATE: 12/03/16 TIME: 15:32 Assessment/Plan VTE Prophylaxis VTE Prophylaxis Intervention: SCD's Lines/Catheters [facility] Saline Lock Urinary Cath still in place: Yes Assessment/Plan Chief Complaint/Hosp Course Assessment and plan 1. Sepsis from UTI. ID consult following. Continue with antibiotics per ID recommendations.Culture did show Proteus mirabilis 2. ALOC secondary to #1. Improving at present. Patient is also noted with underlying dementia. Continue to monitor 3. Essential hypertension. Continue antihypertensives as needed 4. Atrial fibrillation. Patient to be continued on beta-demond. 5. Hypothyroidism. Continue on Synthroid 6. COPD. No active bronchospasm noted at this time. Will monitor. 7. Dyslipidemia. Continue with statin medication 8. BPH. Continue on Flomax 9. C. difficile infection. ABX per ID. On Flagyl Disposition and plan: Noted with C. difficile infection. On Flagyl. Follow-up with ID recommendations. Noted to be still with low-grade fever. Discharged in medically stable and cleared by [employer] consultant Discussed plan of care with Dr. Lorenz Problems: Subjective 24 Hr Interval Summary Free Text/Dictation resting at this time. no acute distress seen Exam/Review of Systems Vital Signs Vitals Vital Signs Date Time Temp Pulse Resp B/P Pulse Ox O2 Delivery O2 Flow Rate FiO2 12/03/16 14:10 56 18 98 Nasal Cannula 2.0 12/03/16 07:40 99.6 140/64 Intake and Output 12/02/16 12/02/16 12/03/16 15:00 23:00 07:00 Intake Total 720 ml 440 ml Output Total 500 ml 500 ml Balance 220 ml -60 ml Exam Constitutional: alert, confused at times Psych: nl mood/affect Neck: supple Respiratory: diminished breath sounds Cardiovascular: other, regular rate Gastrointestinal: non-tender, soft Musculoskeletal: swelling (Minimal bilateral lower extremity) Extremities: other (Forgetful) Results Result Diagram: 12/03/16 0510 12/03/16 0510 Results 24 hrs Laboratory Tests Test 12/02/16 18:00 12/02/16 23:30 12/03/16 05:10 Troponin I < 0.012 < 0.012 White Blood Count 16.2 #H Red Blood Count 3.23 L Hemoglobin 10.2 L Hematocrit 30.7 L Mean Corpuscular Volume 95.0 Mean Corpuscular Hemoglobin 31.6 Mean Corpuscular Hemoglobin Concent 33.2 Red Cell Distribution Width 15.2 H Platelet Count 119 L Mean Platelet Volume 9.7 Neutrophils % 76.1 Lymphocytes % 12.3 L Monocytes % 4.6 Eosinophils % 6.2 Basophils % 0.2 Nucleated Red Blood Cells % 0.0 Neutrophils # 12.3 H Lymphocytes # 2.0 Monocytes # 0.7 Eosinophils # 1.0 H Basophils # 0.0 Nucleated Red Blood Cells # 0.0 Sodium Level 135 Potassium Level 4.2 Chloride Level 110 Carbon Dioxide Level 22 Anion Gap 7 L Blood Urea Nitrogen 17 Creatinine 0.82 Glucose Level 78 Calcium Level 8.0 L Medications Medications Current Medications Ondansetron HCl (Zofran Inj) 4 mg Q6H PRN IV NAUSEA AND/OR VOMITING; Start at 09:30 Acetaminophen (Tylenol Tab) 650 mg Q6H PRN PO PAIN LEVEL 1-3 OR FEVER Last administered on 12/02/16 00:45; Admin Dose 650 MG; Start 12/01/16 at 09:30 Atenolol (Tenormin) 50 mg DAILY PO Last administered on 12/03/16 08:51; Admin Dose 50 MG; Start 12/01/16 at 09:30 Atorvastatin Calcium (Lipitor) 10 mg QHS PO Last administered on 12/02/16 20: 17; Admin Dose 10 MG; Start 12/01/16 at 21:00 Gabapentin (Neurontin) 300 mg DAILY PO Last administered on 12/03/16 08:50; Admin Dose 300 MG; Start 12/02/16 at 09:00 Guaifenesin/ Dextromethorphan (Robitussin Dm Liquid Cup) 5 ml Q8 PO Last administered on 12/03/16 06:04; Admin Dose 5 ML; Start 12/01/16 at 14:00 Hydralazine HCl (Apresoline) 50 mg Q8 PO Last administered on 12/03/16 06:04; Admin Dose 50 MG; Start 12/01/16 at 14:00 Al Hydrox/Mg Hydrox/Simethicone (Mag-Al Plus) 30 ml QID PO Last administered on 12/03/16 08:50; Admin Dose 30 ML; Start 12/01/16 at 13:00 Mirtazapine (Remeron) 15 mg HS PO Last administered on 12/02/16 20:17; Admin Dose 15 MG; Start 12/01/16 at 21:00 Tamsulosin HCl 0.4 mg 0.4 mg DAILY PO Last administered on 12/03/16 08:51; Admin Dose 0.4 MG; Start 12/02/16 at 09:00 Meropenem 100 ml @ 200 mls/hr Q12 IVPB Last administered on 12/03/16 08:50; Admin Dose 200 MLS/HR; Start 12/02/16 at 21:00 Metronidazole (Flagyl 500 Mg (Pmx)) 100 ml @ 100 mls/hr Q8 IVPB Last administered on 12/03/16 05:15; Admin Dose 100 MLS/HR; Start 12/02/16 at 14:00 LORY OLSON December 03, 2016 15:35
[2016-12-03] MEDS: VANCOMYCIN HCL 250 MG/5ML POSYG PO SCH ×2 (18:41→23:21)
[2016-12-03 19:46] VITALS: BP 165/70; RESP 18
[2016-12-03] MEDS: ATORVASTATIN 10 MG TAB PO SCH (21:30)
[2016-12-03] MEDS: MIRTAZAPINE 15 MG TAB PO SCH (21:30)
[2016-12-04] VITALS (9 sets, daily range): BP systolic 134–197; BP diastolic 63–94; PULSE 65–78; RESP 18–24
[2016-12-04] MEDS: ALBUTEROL 0.083% (NEB) 2.5 MG/3 ML AMP NEB SCH ×6 (00:23→20:25)
[2016-12-04] MEDS: VANCOMYCIN HCL 250 MG/5ML POSYG PO SCH ×3 (05:49→17:31)
[2016-12-04] MEDS: metroNIDAZOLE 500 MG/NS (PMX) 100 ML IVPB SCH ×3 (05:49→22:08)
[2016-12-04] MEDS: GUAIFENESIN/DM 5ML CUP PO SCH ×3 (05:49→21:13)
[2016-12-04 06:05] LABS: ADD SCAN DIFF NO
[2016-12-04 06:36] LABS: BASOPHILS % 0.3 % (0.0-2.0); EOSINOPHILS # 1.1 10^3/ul (0.0-0.5); EOSINOPHILS % 10.4 % (0.0-7.0); HEMATOCRIT 30.4 % (42.0-52.0); HEMOGLOBIN 10.3 g/dl (14.0-18.0); LYMPHOCYTES # 2.4 10^3/ul (0.8-2.9); LYMPHOCYTES % 23.7 % (15.0-51.0); MEAN CORPUSCULAR HEMOGLOBIN 31.9 pg (29.0-33.0); MEAN CORPUSCULAR HGB CONC 33.9 g/dl (32.0-37.0); MEAN CORPUSCULAR VOLUME 94.1 fl (82.0-101.0); MEAN PLATELET VOLUME 9.5 fl (7.4-10.4); MONOCYTE # 0.7 10^3/ul (0.3-0.9); MONOCYTES % 6.6 % (0.0-11.0); NEUTROPHILS % 58.2 % (39.0-77.0); PLATELET COUNT 133 10^3/UL (140-415); RED BLOOD COUNT 3.23 10^6/ul (4.70-6.10); RED CELL DISTRIBUTION WIDTH 14.8 % (11.5-14.5); WHITE BLOOD COUNT 10.2 10^3/ul (4.8-10.8)
[2016-12-04 06:40] LABS: CREATININE 0.72 mg/dl (0.61-1.24)
[2016-12-04 06:41] LABS: CALCIUM 7.8 mg/dl (8.4-10.2)
[2016-12-04] MEDS: LEVOTHYROXINE 75 MCG TAB PO SCH (06:58)
[2016-12-04] MEDS: TAMSULOSIN (SR) 0.4 MG CAP PO SCH (08:26)
[2016-12-04] MEDS: GABAPENTIN 300 MG CAP PO SCH (08:26)
[2016-12-04] MEDS: ATENOLOL 50 MG TAB PO SCH (08:26)
[2016-12-04] MEDS: AL HYDROX/MG HYDROX/SIMETH 30 ML CUP PO SCH ×4 (08:26→21:12)
[2016-12-04] MEDS: MEROPENEM 500 MG/100 ML (PMX) 100 ML IVPB SCH ×2 (08:30→21:12)
--- NOTE | 2016-12-04 15:43 | PN ---
Date/Time of Note Date/Time of Note DATE: 12/04/16 TIME: 15:40 Assessment/Plan VTE Prophylaxis VTE Prophylaxis Intervention: SCD's Lines/Catheters IV C[facility] Type (from [facility] Saline Lock Urinary Cath still in place: Yes Assessment/Plan Chief Complaint/Hosp Course Assessment and plan 1. Sepsis from UTI. ID consult following. Continue with antibiotics per ID recommendations.Culture did show Proteus mirabilis and enterococcus 2. ALOC secondary to #1. Improving at present. Patient is also noted with underlying dementia. Continue to monitor 3. Essential hypertension. Continue antihypertensives as needed 4. Atrial fibrillation. Patient to be continued on beta-demond. 5. Hypothyroidism. Continue on Synthroid 6. COPD. No active bronchospasm noted at this time. Will monitor. 7. Dyslipidemia. Continue with statin medication 8. BPH. Continue on Flomax 9. C. difficile infection. ABX per ID. On Flagyl Disposition and plan: cont abx for cdiff and sepsis. antihypertensives adjusted for hypertension. d/c when medically stable and cleared by consultants Discussed plan of care with Dr. Lorenz Problems: Subjective 24 Hr Interval Summary Free Text/Dictation no s/s of distress Exam/Review of Systems Vital Signs Vitals Vital Signs Date Time Temp Pulse Resp B/P Pulse Ox O2 Delivery O2 Flow Rate FiO2 12/04/16 14:13 73 137/64 12/04/16 13:26 18 97 Nasal Cannula 2.0 12/04/16 08:07 98.0 Intake and Output 12/03/16 12/03/16 12/04/16 15:00 23:00 07:00 Intake Total 1440 ml 700 ml Output Total 450 ml 750 ml Balance 990 ml -50 ml Exam Constitutional: alert, confused at times Psych: nl mood/affect Neck: supple Respiratory: diminished breath sounds Cardiovascular: other, regular rate Gastrointestinal: non-tender, soft Musculoskeletal: swelling (Minimal bilateral lower extremity) Extremities: other (Forgetful) Results Result Diagram: 12/04/16 0547 12/04/16 0547 Results 24 hrs Laboratory Tests Test 12/04/16 05:47 White Blood Count 10.2 # Red Blood Count 3.23 L Hemoglobin 10.3 L Hematocrit 30.4 L Mean Corpuscular Volume 94.1 Mean Corpuscular Hemoglobin 31.9 Mean Corpuscular Hemoglobin Concent 33.9 Red Cell Distribution Width 14.8 H Platelet Count 133 L Mean Platelet Volume 9.5 Neutrophils % 58.2 Lymphocytes % 23.7 Monocytes % 6.6 Eosinophils % 10.4 H Basophils % 0.3 Nucleated Red Blood Cells % 0.0 Neutrophils # 6.0 Lymphocytes # 2.4 Monocytes # 0.7 Eosinophils # 1.1 H Basophils # 0.0 Nucleated Red Blood Cells # 0.0 Sodium Level 138 Potassium Level 4.0 Chloride Level 115 H Carbon Dioxide Level 25 Anion Gap 2 L Blood Urea Nitrogen 10 Creatinine 0.72 Glucose Level 90 Calcium Level 7.8 L Medications Medications Current Medications Ondansetron HCl (Zofran Inj) 4 mg Q6H PRN IV NAUSEA AND/OR VOMITING; Start at 09:30 Acetaminophen (Tylenol Tab) 650 mg Q6H PRN PO PAIN LEVEL 1-3 OR FEVER Last administered on 12/02/16 00:45; Admin Dose 650 MG; Start 12/01/16 at 09:30 Atenolol (Tenormin) 50 mg DAILY PO Last administered on 12/04/16 08:26; Admin Dose 50 MG; Start 12/01/16 at 09:30 Atorvastatin Calcium (Lipitor) 10 mg QHS PO Last administered on 12/03/16 21: 30; Admin Dose 10 MG; Start 12/01/16 at 21:00 Gabapentin (Neurontin) 300 mg DAILY PO Last administered on 12/04/16 08:26; Admin Dose 300 MG; Start 12/02/16 at 09:00 Guaifenesin/ Dextromethorphan (Robitussin Dm Liquid Cup) 5 ml Q8 PO Last administered on 12/04/16 14:14; Admin Dose 5 ML; Start 12/01/16 at 14:00 Hydralazine HCl (Apresoline) 50 mg Q8 PO Last administered on 12/04/16 14:14; Admin Dose 50 MG; Start 12/01/16 at 14:00 Al Hydrox/Mg Hydrox/Simethicone (Mag-Al Plus) 30 ml QID PO Last administered on 12/04/16 12:39; Admin Dose 30 ML; Start 12/01/16 at 13:00 Mirtazapine (Remeron) 15 mg HS PO Last administered on 12/03/16 21:30; Admin Dose 15 MG; Start 12/01/16 at 21:00 Tamsulosin HCl 0.4 mg 0.4 mg DAILY PO Last administered on 12/04/16 08:26; Admin Dose 0.4 MG; Start 12/02/16 at 09:00 Meropenem 100 ml @ 200 mls/hr Q12 IVPB Last administered on 12/04/16 08:30; Admin Dose 200 MLS/HR; Start 12/02/16 at 21:00 Metronidazole (Flagyl 500 Mg (Pmx)) 100 ml @ 100 mls/hr Q8 IVPB Last administered on 12/04/16 14:14; Admin Dose 100 MLS/HR; Start 12/02/16 at 14:00 Vancomycin HCl (Vancomycin Oral Syringe) 125 mg Q6 PO Last administered on 12/04 12:39; Admin Dose 125 MG; Start 12/03/16 at 18:00 Hydralazine HCl (Apresoline) 10 mg Q4H PRN IV sbp>160; Start 12/04/16 at 11:30 LORY OLSON December 04, 2016 15:43
--- NOTE | 2016-12-04 16:09 | CONS ---
Date/Time of Note Date/Time of Note DATE: 12/04/16 TIME: 16:06 Assessment/Plan Assessment/Plan Chief Complaint/Hosp Course ID PROGRESS NOTE CURRENT ABX: Merrem + Flagyl IV 24H INTERVAL SUMMARY * [age] M, napping w/supplemental O2 via NC * Low grade tempt 99.6, VSS, NAD, without dyspnea * MICRO: (+)) C.Diff; (+)UTI GNR Proteus w/(+)BCx * Organism 1 PROTEUS MIRABILIS P. MIRAB M.I.C. RX --------- --- AMPICILLIN >=32 R CEFOTAXIME R CIPROFLOXACIN >=4 R GENTAMICIN <=1 S IMIPENEM 1 S LEVOFLOXACIN >=8 R TOBRAMYCIN <=1 S TRIMETHOPRIM/SULFAMETHOXAZOLE >=320 R PIPERACILLIN/TAZOBACTAM <=4 S PHYSICAL EXAMINATION: VITAL SIGNS: Afebrile, VSS, NAD GENERAL: Looks comfortable HEENT: Unremarkable LUNGS: Equal chest rise without dyspnea on observation HEART: RRR ABDOMEN: Soft, EXTREMITIES: Warm SKIN: Intact ID IMPRESSION: 89 yo M admit with: 1. Severe sepsis with fevers, leukocytosis and bandemia present on admission. 2. Gram-negative rods urinary tract infection with bacteremia. * Organism 1 PROTEUS MIRABILIS P. MIRAB URINE CULTURE Preliminary Organism 1 GRAM NEGATIVE RICHIE COLONY COUNT >100,000 CFU/ml Organism 2 ENTEROCOCCUS SPECIES COLONY COUNT >100,000 CFU/ml 3. (+)C.Diff Colitis 4. Atrial fibrillation. 5. Benign prostatic hypertrophy. 6. Chronic obstructive pulmonary disease. (-) MRSA Nares INVASIVES: PIV CURRENT ABX: Merrem + Flagyl IV + Vanco Liquid + Start Zyvox for Enterococcal UTI ID RECOMMENDATION 1. Continue current ABX + Add Vanco Liquid PO 2. + Start Zyvox for Enterococcal UTI 3. Let's wait for final pathogen micro sensitivity results prior to final ABX recommendations . Problems: Consultation Date/Type/Reason Admit Date/Time December 01, 2016 at 06:00 Exam/Review of Systems Vital Signs Vitals Vital Signs Date Time Temp Pulse Resp B/P Pulse Ox O2 Delivery O2 Flow Rate FiO2 12/04/16 14:13 73 137/64 12/04/16 13:26 18 97 Nasal Cannula 2.0 12/04/16 08:07 98.0 Intake and Output 12/03/16 12/03/16 12/04/16 15:00 23:00 07:00 Intake Total 1440 ml 700 ml Output Total 450 ml 750 ml Balance 990 ml -50 ml Results Result Diagram: 12/04/16 0547 12/04/16 0547 Results 24 hrs Laboratory Tests Test 12/04/16 05:47 White Blood Count 10.2 # Red Blood Count 3.23 L Hemoglobin 10.3 L Hematocrit 30.4 L Mean Corpuscular Volume 94.1 Mean Corpuscular Hemoglobin 31.9 Mean Corpuscular Hemoglobin Concent 33.9 Red Cell Distribution Width 14.8 H Platelet Count 133 L Mean Platelet Volume 9.5 Neutrophils % 58.2 Lymphocytes % 23.7 Monocytes % 6.6 Eosinophils % 10.4 H Basophils % 0.3 Nucleated Red Blood Cells % 0.0 Neutrophils # 6.0 Lymphocytes # 2.4 Monocytes # 0.7 Eosinophils # 1.1 H Basophils # 0.0 Nucleated Red Blood Cells # 0.0 Sodium Level 138 Potassium Level 4.0 Chloride Level 115 H Carbon Dioxide Level 25 Anion Gap 2 L Blood Urea Nitrogen 10 Creatinine 0.72 Glucose Level 90 Calcium Level 7.8 L Medications Medications Current Medications Ondansetron HCl (Zofran Inj) 4 mg Q6H PRN IV NAUSEA AND/OR VOMITING; Start at 09:30 Acetaminophen (Tylenol Tab) 650 mg Q6H PRN PO PAIN LEVEL 1-3 OR FEVER Last administered on 12/02/16 00:45; Admin Dose 650 MG; Start 12/01/16 at 09:30 Atenolol (Tenormin) 50 mg DAILY PO Last administered on 12/04/16 08:26; Admin Dose 50 MG; Start 12/01/16 at 09:30 Atorvastatin Calcium (Lipitor) 10 mg QHS PO Last administered on 12/03/16 21: 30; Admin Dose 10 MG; Start 12/01/16 at 21:00 Gabapentin (Neurontin) 300 mg DAILY PO Last administered on 12/04/16 08:26; Admin Dose 300 MG; Start 12/02/16 at 09:00 Guaifenesin/ Dextromethorphan (Robitussin Dm Liquid Cup) 5 ml Q8 PO Last administered on 12/04/16 14:14; Admin Dose 5 ML; Start 12/01/16 at 14:00 Hydralazine HCl (Apresoline) 50 mg Q8 PO Last administered on 12/04/16 14:14; Admin Dose 50 MG; Start 12/01/16 at 14:00 Al Hydrox/Mg Hydrox/Simethicone (Mag-Al Plus) 30 ml QID PO Last administered on 12/04/16 12:39; Admin Dose 30 ML; Start 12/01/16 at 13:00 Mirtazapine (Remeron) 15 mg HS PO Last administered on 12/03/16 21:30; Admin Dose 15 MG; Start 12/01/16 at 21:00 Tamsulosin HCl 0.4 mg 0.4 mg DAILY PO Last administered on 12/04/16 08:26; Admin Dose 0.4 MG; Start 12/02/16 at 09:00 Meropenem 100 ml @ 200 mls/hr Q12 IVPB Last administered on 12/04/16 08:30; Admin Dose 200 MLS/HR; Start 12/02/16 at 21:00 Metronidazole (Flagyl 500 Mg (Pmx)) 100 ml @ 100 mls/hr Q8 IVPB Last administered on 12/04/16 14:14; Admin Dose 100 MLS/HR; Start 12/02/16 at 14:00 Vancomycin HCl (Vancomycin Oral Syringe) 125 mg Q6 PO Last administered on 12/04 12:39; Admin Dose 125 MG; Start 12/03/16 at 18:00 Hydralazine HCl (Apresoline) 10 mg Q4H PRN IV sbp>160; Start 12/04/16 at 11:30 STEFAN NIETO NP December 04, 2016 16:09
[2016-12-04] MEDS ORDERED: morphine 10 MG INJ IM PRN (17:00)
[2016-12-04] MEDS ORDERED: NITROGLYCERIN (SL) 0.4 MG TAB ONE (17:01)
[2016-12-04] MEDS: NITROGLYCERIN (SL) 0.4 MG TAB SL PRN ×2 (17:04→17:10)
[2016-12-04] MEDS: LINEZOLID 600 MG/D5W (PMX) 300 ML IVPB SCH (17:30)
[2016-12-04] MEDS: ATORVASTATIN 10 MG TAB PO SCH (21:12)
[2016-12-04] MEDS: MIRTAZAPINE 15 MG TAB PO SCH (21:12)
[2016-12-04] MEDS: morphine 2 MG INJ IV PRN (21:23)
[2016-12-05] VITALS (9 sets, daily range): BP systolic 140–198; BP diastolic 65–89; PULSE 66–80; RESP 18–22
[2016-12-05] MEDS: VANCOMYCIN HCL 250 MG/5ML POSYG PO SCH ×5 (00:33→23:46)
[2016-12-05] MEDS: ALBUTEROL 0.083% (NEB) 2.5 MG/3 ML AMP NEB SCH ×6 (01:21→20:26)
[2016-12-05 06:02] LABS: ADD SCAN DIFF NO
[2016-12-05 06:05] LABS: BASOPHILS % 0.4 % (0.0-2.0); EOSINOPHILS # 0.8 10^3/ul (0.0-0.5); EOSINOPHILS % 9.4 % (0.0-7.0); HEMOGLOBIN 11.1 g/dl (14.0-18.0); LYMPHOCYTES # 2.3 10^3/ul (0.8-2.9); LYMPHOCYTES % 27.8 % (15.0-51.0); MEAN CORPUSCULAR HEMOGLOBIN 31.7 pg (29.0-33.0); MEAN CORPUSCULAR HGB CONC 33.6 g/dl (32.0-37.0); MEAN CORPUSCULAR VOLUME 94.3 fl (82.0-101.0); MEAN PLATELET VOLUME 10.6 fl (7.4-10.4); MONOCYTE # 0.6 10^3/ul (0.3-0.9); MONOCYTES % 6.8 % (0.0-11.0); NEUTROPHIL # 4.2 10^3/ul (1.6-7.5); NEUTROPHILS % 52.3 % (39.0-77.0); PLATELET COUNT 148 10^3/UL (140-415); RED CELL DISTRIBUTION WIDTH 14.7 % (11.5-14.5); WHITE BLOOD COUNT 8.1 10^3/ul (4.8-10.8)
[2016-12-05 06:26] LABS: POTASSIUM 4.6 mmol/L (3.5-5.1)
[2016-12-05 06:29] LABS: CREATININE 0.65 mg/dl (0.61-1.24)
[2016-12-05 06:30] LABS: CALCIUM 7.8 mg/dl (8.4-10.2)
[2016-12-05] MEDS: GUAIFENESIN/DM 5ML CUP PO SCH ×3 (06:35→21:50)
[2016-12-05] MEDS: metroNIDAZOLE 500 MG/NS (PMX) 100 ML IVPB SCH ×3 (06:35→23:27)
[2016-12-05] MEDS: LEVOTHYROXINE 75 MCG TAB PO SCH (06:35)
[2016-12-05] MEDS: hydrALAzine 20 MG INJ IV PRN ×4 (06:46→23:46)
[2016-12-05] MEDS: AL HYDROX/MG HYDROX/SIMETH 30 ML CUP PO SCH ×4 (08:45→21:45)
[2016-12-05] MEDS: TAMSULOSIN (SR) 0.4 MG CAP PO SCH (08:46)
[2016-12-05] MEDS: GABAPENTIN 300 MG CAP PO SCH (08:47)
[2016-12-05] MEDS: ATENOLOL 50 MG TAB PO SCH (08:47)
[2016-12-05] MEDS: MEROPENEM 500 MG/100 ML (PMX) 100 ML IVPB SCH ×2 (08:52→21:45)
[2016-12-05] MEDS: LINEZOLID 600 MG/D5W (PMX) 300 ML IVPB SCH ×2 (09:54→21:59)
--- NOTE | 2016-12-05 15:58 | CONS ---
Date/Time of Note Date/Time of Note DATE: 12/05/16 TIME: 15:54 Assessment/Plan Assessment/Plan Chief Complaint/Hosp Course ID PROGRESS NOTE CURRENT ABX: Merrem + Flagyl IV + Zyvox 24H INTERVAL SUMMARY * [age] M, napping w/supplemental O2 via NC * Low grade tempt 99.6, VSS, NAD, without dyspnea * MICRO: (+)) C.Diff; (+)UTI GNR Proteus w/(+)BCx * URINE CULTURE Final Organism 1 PROTEUS MIRABILIS COLONY COUNT >100,000 CFU/ml Organism 2 ENTEROCOCCUS SPECIES COLONY COUNT >100,000 CFU/ml P. MIRAB ENT SPS M.I.C. RX M.I.C. RX --------- --- --------- --- AMPICILLIN >=32 R <=2 S CEFEPIME 4 S CEFOTAXIME R CIPROFLOXACIN >=4 R >=8 R GENTAMICIN <=1 S IMIPENEM 1 S LEVOFLOXACIN >=8 R NITROFURANTOIN 128 R 64 I PENICILLIN-G 8 S VANCOMYCIN 2 S TOBRAMYCIN <=1 S TRIMETHOPRIM/SULFAMETHOXAZOLE >=320 R PIPERACILLIN/TAZOBACTAM <=4 S PHYSICAL EXAMINATION: VITAL SIGNS: Afebrile, VSS, NAD GENERAL: Looks comfortable HEENT: Unremarkable LUNGS: Equal chest rise without dyspnea on observation HEART: RRR ABDOMEN: Soft, EXTREMITIES: Warm SKIN: Intact ID IMPRESSION: 89 yo M admit with: 1. Severe sepsis with fevers, leukocytosis and bandemia present on admission. 2. Gram-negative rods urinary tract infection with bacteremia. * Organism 1 PROTEUS MIRABILIS P. MIRAB URINE CULTURE Final Organism 1 PROTEUS MIRABILIS COLONY COUNT >100,000 CFU/ml Organism 2 ENTEROCOCCUS SPECIES COLONY COUNT >100,000 CFU/ml P. MIRAB ENT SPS M.I.C. RX M.I.C. RX --------- --- --------- --- AMPICILLIN >=32 R <=2 S CEFEPIME 4 S CEFOTAXIME R CIPROFLOXACIN >=4 R >=8 R GENTAMICIN <=1 S IMIPENEM 1 S LEVOFLOXACIN >=8 R NITROFURANTOIN 128 R 64 I PENICILLIN-G 8 S VANCOMYCIN 2 S TOBRAMYCIN <=1 S TRIMETHOPRIM/SULFAMETHOXAZOLE >=320 R PIPERACILLIN/TAZOBACTAM <=4 S 3. (+)C.Diff Colitis 4. Atrial fibrillation. 5. Benign prostatic hypertrophy. 6. Chronic obstructive pulmonary disease. (-) MRSA Nares INVASIVES: PIV CURRENT ABX: Merrem + Flagyl IV + Vanco Liquid + Zyvox #2 for Enterococcal UTI ID RECOMMENDATION 1. Continue current ABX + Add Vanco Liquid PO 2. Zyvox for Enterococcal UTI #2 3. Let's repeat UA C&S and see if Enterococcus has cleared . Problems: Consultation Date/Type/Reason Admit Date/Time December 01, 2016 at 06:00 Exam/Review of Systems Vital Signs Vitals Vital Signs Date Time Temp Pulse Resp B/P Pulse Ox O2 Delivery O2 Flow Rate FiO2 12/05/16 14:26 89 19 96 Nasal Cannula 2.0 12/05/16 12:30 148/65 12/05/16 07:53 98.6 Intake and Output 12/04/16 12/04/16 12/05/16 15:00 23:00 07:00 Intake Total 100 ml 1680 ml Output Total 400 ml Balance 100 ml 1280 ml Results Result Diagram: 12/05/1610 12/05/1610 Results 24 hrs Laboratory Tests Test 12/04/16 17:05 12/04/16 23:20 12/05/16 05:10 Troponin I < 0.012 < 0.012 White Blood Count 8.1 # Red Blood Count 3.50 L Hemoglobin 11.1 L Hematocrit 33.0 L Mean Corpuscular Volume 94.3 Mean Corpuscular Hemoglobin 31.7 Mean Corpuscular Hemoglobin Concent 33.6 Red Cell Distribution Width 14.7 H Platelet Count 148 Mean Platelet Volume 10.6 H Neutrophils % 52.3 Lymphocytes % 27.8 Monocytes % 6.8 Eosinophils % 9.4 H Basophils % 0.4 Nucleated Red Blood Cells % 0.0 Neutrophils # 4.2 Lymphocytes # 2.3 Monocytes # 0.6 Eosinophils # 0.8 H Basophils # 0.0 Nucleated Red Blood Cells # 0.0 Sodium Level 136 Potassium Level 4.6 Chloride Level 114 H Carbon Dioxide Level 24 Anion Gap 3 L Blood Urea Nitrogen 8 Creatinine 0.65 Glucose Level 89 Calcium Level 7.8 L Medications Medications Current Medications Ondansetron HCl (Zofran Inj) 4 mg Q6H PRN IV NAUSEA AND/OR VOMITING; Start at 09:30 Acetaminophen (Tylenol Tab) 650 mg Q6H PRN PO PAIN LEVEL 1-3 OR FEVER Last administered on 12/02/16 00:45; Admin Dose 650 MG; Start 12/01/16 at 09:30 Atenolol (Tenormin) 50 mg DAILY PO Last administered on 12/05/16 08:47; Admin Dose 50 MG; Start 12/01/16 at 09:30 Atorvastatin Calcium (Lipitor) 10 mg QHS PO Last administered on 12/04/16 21: 12; Admin Dose 10 MG; Start 12/01/16 at 21:00 Gabapentin (Neurontin) 300 mg DAILY PO Last administered on 12/05/16 08:47; Admin Dose 300 MG; Start 12/02/16 at 09:00 Guaifenesin/ Dextromethorphan (Robitussin Dm Liquid Cup) 5 ml Q8 PO Last administered on 12/05/16 06:35; Admin Dose 5 ML; Start 12/01/16 at 14:00 Hydralazine HCl (Apresoline) 50 mg Q8 PO Last administered on 12/05/16 08:48; Admin Dose 50 MG; Start 12/01/16 at 14:00 Al Hydrox/Mg Hydrox/Simethicone (Mag-Al Plus) 30 ml QID PO Last administered on 12/05/16 08:45; Admin Dose 30 ML; Start 12/01/16 at 13:00 Mirtazapine (Remeron) 15 mg HS PO Last administered on 12/04/16 21:12; Admin Dose 15 MG; Start 12/01/16 at 21:00 Tamsulosin HCl 0.4 mg 0.4 mg DAILY PO Last administered on 12/05/16 08:46; Admin Dose 0.4 MG; Start 12/02/16 at 09:00 Meropenem 100 ml @ 200 mls/hr Q12 IVPB Last administered on 12/05/16 08:52; Admin Dose 200 MLS/HR; Start 12/02/16 at 21:00 Metronidazole (Flagyl 500 Mg (Pmx)) 100 ml @ 100 mls/hr Q8 IVPB Last administered on 12/05/16 13:59; Admin Dose 100 MLS/HR; Start 12/02/16 at 14:00 Vancomycin HCl (Vancomycin Oral Syringe) 125 mg Q6 PO Last administered on 12/05 11:52; Admin Dose 125 MG; Start 12/03/16 at 18:00 Hydralazine HCl 10 mg 10 mg Q4H PRN IV sbp>160 Last administered on 12/05/16 11:55; Admin Dose 10 MG; Start 12/04/16 at 11:30 Linezolid (Zyvox 600mg/D5W (Pmx)) 300 ml @ 300 mls/hr Q12 IVPB Last administered on 12/05/16 09:54; Admin Dose 300 MLS/HR; Start 12/04/16 at 18:00 Nitroglycerin (Nitroglycerin (Sl Tab) 0.4 Mg) 1 tab Q5M PRN SL ANGINA Last administered on 12/04/16 17:10; Admin Dose 1 TAB; Start 12/04/16 at 17:00 Morphine Sulfate (morphine) 2 mg Q4H PRN IV pain Last administered on 21:23; Admin Dose 2 MG; Start 12/04/16 at 17:30 STEFAN NIETO NP December 05, 2016 15:58
[2016-12-05 16:37] LABS: AADO2 Arterial 48.7 mmHg (7.0-24.0); Allen Test ACCEPTAB; Arterial Base Excess 1.2 mmol/L (-3.0-3); Arterial COHb 0.3 % (0.0-3.0); Arterial Fraction of Oxyhgb 96.8 % (93.0-99.0); Arterial HCO3 25.4 mmol/L (22.0-26.0); Arterial MetHb 0.4 % (0.0-1.5); Arterial Total Hemglobin 11.9 g/dl (12.0-18.0); MODE NASAL CANNULA
--- NOTE | 2016-12-05 17:31 | PN ---
DATE: 12/05/2016 TIME OF EVALUATION: 1600. SUBJECTIVE DATA: The patient remains somnolent. As per nursing, the patient has been refusing his oral medications. OBJECTIVE DATA: VITAL SIGNS: Temperature 98.6, pulse rate 89, respiratory rate 19, blood pressure 148/64, oxygen saturation 96% on low flow O2. GENERAL: This is an 89-year-old elderly male lying in bed in no apparent distress. HEENT: Head normocephalic and atraumatic. Eyes: Anicteric sclerae. Conjunctivae clear. ENT: Nasal septum is midline. Oral mucosa is dry. Poor dentition. NECK: Supple. No JVD noticed. RESPIRATORY: Bilaterally diminished breath sounds. No use of accessory muscles of respiration. CARDIAC: Regular rate and rhythm. S1 and S2 heard. ABDOMEN: Soft, nontender and nondistended. Bowel sounds positive in all 4 quadrants. GENITOURINARY: Deferred. EXTREMITIES: No cyanosis, no clubbing, no edema. Peripheral pulses are diminished bilaterally. NEUROLOGIC: The patient is somnolent. The patient wakes up to call and dozes off momentarily. LABORATORIES AND DIAGNOSTIC DATA: WBC 8.1, hemoglobin 11.1, hematocrit 33.0, platelet count 148. Sodium 136, potassium 4.6, chloride 120, carbon dioxide 24 , anion gap 13, BUN 8, creatinine 0.65, glucose 69, calcium 7.8. ASSESSMENT AND PLAN: 1. Sepsis secondary to underlying urinary tract infection, Proteus mirabilis bacteremia and Clostridium difficile colitis. Continue antibiotics as per infectious disease. 2. Acute encephalopathy in a patient with underlying dementia, most probably toxic metabolic in origin. Will obtain a CT scan of the brain to evaluate for any underlying acute intracranial findings. 3. Essential hypertension. The patient will be continued on antihypertensives. 4. Paroxysmal atrial fibrillation. Currently in sinus rhythm. The patient will be continued on beta blockers. 5. Hypothyroidism. Continue Synthroid. 6. Benign prostatic hypertrophy. Continue tamsulosin. 7. Chronic obstructive pulmonary disease. No active bronchospasms. Continue inhaled bronchodilators as needed. 8. Dyslipidemia. Continue statins. 9. Clostridium difficile colitis. Continue antimicrobials as per infectious diseases. Continue enteric precautions. 10. Fluid, electrolytes and nutrition. Soft diet. Aspiration precautions. 11. Deep venous thrombosis prophylaxis. Subcutaneous Lovenox. 12. Gastrointestinal prophylaxis. H2 receptor blockers. PLAN: Continue antimicrobials as per infectious diseases. We will obtain arterial blood gases to evaluate for any CO2 retention, provided the patient's underlying history of COPD. We will obtain a CT scan of the brain. The case was discussed with Dr. Danielle. YULIA DANIELLE MD, AM/TROY Conf#: [id number] DID#: [id number] MTDD
[2016-12-05] MEDS: ATORVASTATIN 10 MG TAB PO SCH (21:45)
[2016-12-05] MEDS: MIRTAZAPINE 15 MG TAB PO SCH (21:45)
[2016-12-06] VITALS (7 sets, daily range): BP systolic 153–200; BP diastolic 70–84; PULSE 78–84; RESP 18–20
[2016-12-06] MEDS: ALBUTEROL 0.083% (NEB) 2.5 MG/3 ML AMP NEB SCH ×6 (00:40→20:11)
--- NOTE | 2016-12-06 02:42 | RADRPT ---
PROCEDURE: CT head, without contrast. CLINICAL INDICATION: Altered mental status. TECHNIQUE: Noncontrast CT examination of the head, with axial, sagittal and coronal reformatted im ages. Automated dose exposure control was employed. CTDI: 43.27 and DLP: 720.23. COMPARISON: None. FINDINGS: Chronic changes of atrophy and small vessel disease white matter. No acute hemorrhage. Subarachnoid spaces are substantially preserved and symmetric. Ventricles ar e unremarkable. Septum vergae variant. No mass effect. Agarwal-white matter distinction is preserved without evident decreased attenuation t o suggest acute or recent infarct. Small chronic mucous retention cyst in the anterior right maxillary sinus. Sinuses and osseous structures are otherwise unremarkable. IMPRESSION: Chronic changes of atrophy and small vessel disease of white matter, and otherwise, no acute process in the head. RPTAT: [facility]U Physician Saida Date Time Electronically viewed and signed by Physician Saida on 12/06/2016 02:42 RS/
[2016-12-06 05:31] LABS: ADD SCAN DIFF NO
[2016-12-06 05:37] LABS: BASOPHIL # 0.1 10^3/ul (0.0-0.1); BASOPHILS % 0.6 % (0.0-2.0); EOSINOPHILS # 0.7 10^3/ul (0.0-0.5); EOSINOPHILS % 8.4 % (0.0-7.0); HEMATOCRIT 32.9 % (42.0-52.0); HEMOGLOBIN 11.2 g/dl (14.0-18.0); LYMPHOCYTES # 2.5 10^3/ul (0.8-2.9); LYMPHOCYTES % 29.9 % (15.0-51.0); MEAN CORPUSCULAR HEMOGLOBIN 31.5 pg (29.0-33.0); MEAN CORPUSCULAR VOLUME 92.4 fl (82.0-101.0); MEAN PLATELET VOLUME 9.2 fl (7.4-10.4); MONOCYTE # 0.7 10^3/ul (0.3-0.9); MONOCYTES % 7.7 % (0.0-11.0); NEUTROPHIL # 4.2 10^3/ul (1.6-7.5); NEUTROPHILS % 49.2 % (39.0-77.0); NUCLEATED RED BLOOD CELLS% 0.5 /100WBC (0.0-0.0); PLATELET COUNT 213 10^3/UL (140-415); RED BLOOD COUNT 3.56 10^6/ul (4.70-6.10); RED CELL DISTRIBUTION WIDTH 14.5 % (11.5-14.5); WHITE BLOOD COUNT 8.4 10^3/ul (4.8-10.8)
[2016-12-06 05:53] LABS: POTASSIUM 4.1 mmol/L (3.5-5.1)
[2016-12-06 05:56] LABS: CREATININE 0.67 mg/dl (0.61-1.24)
[2016-12-06 05:57] LABS: CALCIUM 7.9 mg/dl (8.4-10.2)
[2016-12-06] MEDS: LEVOTHYROXINE 75 MCG TAB PO SCH (06:25)
[2016-12-06] MEDS: metroNIDAZOLE 500 MG/NS (PMX) 100 ML IVPB SCH ×3 (06:25→22:26)
[2016-12-06] MEDS: GUAIFENESIN/DM 5ML CUP PO SCH ×3 (06:25→21:33)
[2016-12-06] MEDS: VANCOMYCIN HCL 250 MG/5ML POSYG PO SCH ×3 (06:25→18:05)
[2016-12-06 06:28] LABS: MAGNESIUM 1.9 mg/dl (1.7-2.5); PHOSPHORUS 2.1 mg/dl (2.5-4.9)
[2016-12-06] MEDS: hydrALAzine 20 MG INJ IV PRN (06:33)
--- NOTE | 2016-12-06 08:58 | PN ---
Date/Time of Note Date/Time of Note DATE: 12/06/16 TIME: 08:58 Assessment/Plan VTE Prophylaxis VTE Prophylaxis Intervention: LMWH Lines/Catheters IV [facility]from [facility] Peripheral IV Urinary Cath still in place: Yes Reason Cath still needed: other (indicate) Assessment/Plan Chief Complaint/Hosp Course 1. Sepsis secondary to underlying urinary tract infection, Proteus mirabilis bacteremia and Clostridium difficile colitis. Continue antibiotics as per infectious disease. 2. Acute encephalopathy in a patient with underlying dementia, most probably toxic metabolic in origin. CT scan of the brain negative for any acute findings. 3. Essential hypertension. The patient will be continued on antihypertensives. 4. Reported paroxysmal atrial fibrillation. Currently in sinus rhythm. The patient will be continued on beta blockers. 5. Hypothyroidism. Continue Synthroid. 6. Benign prostatic hypertrophy. Continue tamsulosin. 7. Chronic obstructive pulmonary disease. No active bronchospasms. Continue inhaled bronchodilators as needed. 8. Essential hypertension. Continue antihypertensives including p.r.n. antihypertensives. 9. Dyslipidemia. Continue statins. 10. Clostridium difficile colitis. Continue antimicrobials as per infectious diseases. Continue enteric precautions. 11. Fluid, electrolytes and nutrition. Soft diet. Aspiration precautions. 12. Deep venous thrombosis prophylaxis. Subcutaneous Lovenox. 13. Gastrointestinal prophylaxis. H2 receptor blockers. PLAN: Continue antimicrobials as per infectious diseases. Replete phosphorous. The case was discussed with Dr. Montano. Problems: Subjective 24 Hr Interval Summary Free Text/Dictation The patient is more awake today. Exam/Review of Systems Vital Signs Vitals Vital Signs Date Time Temp Pulse Resp B/P Pulse Ox O2 Delivery O2 Flow Rate FiO2 12/06/16 08:08 98.1 73 20 200/84 97 12/06/16 05:23 Nasal Cannula 2.0 Intake and Output 12/05/16 12/05/16 12/06/16 15:00 23:00 07:00 Intake Total 600 ml 700 ml 460 ml Output Total 700 ml 500 ml Balance 600 ml 0 ml -40 ml Exam GENERAL: This is an 89-year-old elderly male lying in bed in no apparent distress. HEENT: Head normocephalic and atraumatic. Eyes: Anicteric sclerae. Conjunctivae clear. ENT: Nasal septum is midline. Oral mucosa is dry. Poor dentition. NECK: Supple. No JVD noticed. RESPIRATORY: Bilaterally diminished breath sounds. No use of accessory muscles of respiration. CARDIAC: Regular rate and rhythm. S1 and S2 heard. ABDOMEN: Soft, nontender and nondistended. Bowel sounds positive in all 4 quadrants. GENITOURINARY: Deferred. EXTREMITIES: No cyanosis, no clubbing, no edema. Peripheral pulses are diminished bilaterally. NEUROLOGIC: The patient is awake and alert. Oriented 1-2. Results Result Diagram: 12/06/16 0512 12/06/16 0512 Results 24 hrs Laboratory Tests Test 12/05/16 16:00 12/05/16 17:55 12/06/16 05:12 Blood Gas Specimen Source Blood arterial Arterial Blood Date Drawn 12/05/2016 4:30:01 PM Arterial Blood pH (Temp corrected) 7.433 Arterial Blood pCO2 (Temp correct) 38.9 Arterial Blood pO2 (Temp corrected) 97.8 H Arterial Blood HCO3 25.4 Arterial Blood Base Excess 1.2 Arterial Blood Oxygen Saturation 97.5 Dawson Test ACCEPTAB Arterial Blood Gas Puncture Site Right Radial Arterial Blood Carboxyhemoglobin 0.3 Arterial Blood Methemoglobin 0.4 Blood Gas A-a O2 Differential 48.7 H Oxyhemoglobin Percent 96.8 Total Hemoglobin 11.9 L Blood Gas Temperature 37.0 Blood Gas Modality NASAL CANNULA FiO2 27.0 Blood Gas Notified Whom RT Blood Gas Notified Time 12/05/2016 4:37:40 PM Troponin I < 0.012 White Blood Count 8.4 Red Blood Count 3.56 L Hemoglobin 11.2 L Hematocrit 32.9 L Mean Corpuscular Volume 92.4 Mean Corpuscular Hemoglobin 31.5 Mean Corpuscular Hemoglobin Concent 34.0 Red Cell Distribution Width 14.5 Platelet Count 213 # Mean Platelet Volume 9.2 Neutrophils % 49.2 Lymphocytes % 29.9 Monocytes % 7.7 Eosinophils % 8.4 H Basophils % 0.6 Nucleated Red Blood Cells % 0.5 H Neutrophils # 4.2 Lymphocytes # 2.5 Monocytes # 0.7 Eosinophils # 0.7 H Basophils # 0.1 Nucleated Red Blood Cells # 0.0 Sodium Level 137 Potassium Level 4.1 Chloride Level 111 H Carbon Dioxide Level 25 Anion Gap 5 L Blood Urea Nitrogen 6 L Creatinine 0.67 Glucose Level 103 Calcium Level 7.9 L Phosphorus Level 2.1 L Magnesium Level 1.9 Medications Medications Current Medications Ondansetron HCl (Zofran Inj) 4 mg Q6H PRN IV NAUSEA AND/OR VOMITING; Start at 09:30 Acetaminophen (Tylenol Tab) 650 mg Q6H PRN PO PAIN LEVEL 1-3 OR FEVER Last administered on 12/02/16 00:45; Admin Dose 650 MG; Start 12/01/16 at 09:30 Atenolol (Tenormin) 50 mg DAILY PO Last administered on 12/05/16 08:47; Admin Dose 50 MG; Start 12/01/16 at 09:30 Atorvastatin Calcium (Lipitor) 10 mg QHS PO Last administered on 12/05/16 21: 45; Admin Dose 10 MG; Start 12/01/16 at 21:00 Gabapentin (Neurontin) 300 mg DAILY PO Last administered on 12/05/16 08:47; Admin Dose 300 MG; Start 12/02/16 at 09:00 Guaifenesin/ Dextromethorphan (Robitussin Dm Liquid Cup) 5 ml Q8 PO Last administered on 12/06/16 06:25; Admin Dose 5 ML; Start 12/01/16 at 14:00 Hydralazine HCl (Apresoline) 50 mg Q8 PO Last administered on 12/05/16 21:50; Admin Dose 50 MG; Start 12/01/16 at 14:00 Al Hydrox/Mg Hydrox/Simethicone (Mag-Al Plus) 30 ml QID PO Last administered on 12/05/16 21:45; Admin Dose 30 ML; Start 12/01/16 at 13:00 Mirtazapine (Remeron) 15 mg HS PO Last administered on 12/05/16 21:45; Admin Dose 15 MG; Start 12/01/16 at 21:00 Tamsulosin HCl 0.4 mg 0.4 mg DAILY PO Last administered on 12/05/16 08:46; Admin Dose 0.4 MG; Start 12/02/16 at 09:00 Meropenem 100 ml @ 200 mls/hr Q12 IVPB Last administered on 12/05/16 21:45; Admin Dose 200 MLS/HR; Start 12/02/16 at 21:00 Metronidazole (Flagyl 500 Mg (Pmx)) 100 ml @ 100 mls/hr Q8 IVPB Last administered on 12/06/16 06:25; Admin Dose 100 MLS/HR; Start 12/02/16 at 14:00 Vancomycin HCl (Vancomycin Oral Syringe) 125 mg Q6 PO Last administered on 12/06 06:25; Admin Dose 125 MG; Start 12/03/16 at 18:00 Hydralazine HCl 10 mg 10 mg Q4H PRN IV sbp>160 Last administered on 12/06/16 06:33; Admin Dose 10 MG; Start 12/04/16 at 11:30 Linezolid (Zyvox 600mg/D5W (Pmx)) 300 ml @ 300 mls/hr Q12 IVPB Last administered on 12/05/16 21:59; Admin Dose 300 MLS/HR; Start 12/04/16 at 18:00 Nitroglycerin (Nitroglycerin (Sl Tab) 0.4 Mg) 1 tab Q5M PRN SL ANGINA Last administered on 12/04/16 17:10; Admin Dose 1 TAB; Start 12/04/16 at 17:00 Morphine Sulfate (morphine) 2 mg Q4H PRN IV pain Last administered on 21:23; Admin Dose 2 MG; Start 12/04/16 at 17:30 YULIA LEMUS NP December 06, 2016 08:58 YULIA LEMUS NP December 06, 2016 08:58
[2016-12-06] MEDS: MEROPENEM 500 MG/100 ML (PMX) 100 ML IVPB SCH (09:22)
[2016-12-06] MEDS: TAMSULOSIN (SR) 0.4 MG CAP PO SCH (09:23)
[2016-12-06] MEDS: GABAPENTIN 300 MG CAP PO SCH (09:23)
[2016-12-06] MEDS: ATENOLOL 50 MG TAB PO SCH (09:24)
[2016-12-06] MEDS: AL HYDROX/MG HYDROX/SIMETH 30 ML CUP PO SCH ×4 (09:24→20:32)
[2016-12-06] MEDS: LINEZOLID 600 MG/D5W (PMX) 300 ML IVPB SCH (10:01)
[2016-12-06] MEDS ORDERED: SODIUM PHOSPHATE 30 MMOL in SOD CHLORIDE 0.9% 250 ML IVPB SCH (10:30)
--- NOTE | 2016-12-06 10:39 | PN ---
DATE: 12/06/2016 PALLIATIVE CARE PROGRESS NOTE Mr. Cousin remains in the hospital on broad spectrum IV antibiotic coverage. Case management is in the process of setting up family conference. Hopefully this will be done within the next couple of d ays. The patient is still a FULL CODE. Palliative care issues need to be addressed as to who is sp eaking on patient's behalf and the goals of care. We also have an incomplete database. I am unclear as to what this gentleman's baseline cognitive status is. He clearly has some level of dementia. Cultural issues, surrogate issues should be addressed prior to discharge in addition to discussion o f a POLST. Once again we will try and speak to family members. We will rely upon case management and social workers to try and organize. Dictated By: MARTA BARR MD, LP/TROY Conf#: [id number] DID#: [id number]
[2016-12-06] MEDS: morphine 2 MG INJ IV PRN ×2 (11:12→15:51)
--- NOTE | 2016-12-06 15:08 | RADRPT ---
Vent Rate: 68 bpm RR Interval: 0 msec OK Interval: 188 msec QRS Duration: 96 msec QT Interval: 446 msec QTC Interval: 474 msec P-R-T Gasquet: 41 - -15 - 14 degrees Normal sinus rhythm Minimal voltage criteria for LVH, may be normal variant Borderline ECG Electronically Signed By: Parminder Guillaume [id number]
[2016-12-06] MEDS: MIRTAZAPINE 15 MG TAB PO SCH (20:32)
[2016-12-06] MEDS: ATORVASTATIN 10 MG TAB PO SCH (20:32)
[2016-12-06] MEDS: ERTAPENEM SODIUM 1 GM in SOD CHLORIDE 0.9% 100 ML IVPB SCH (20:58)
[2016-12-06] MEDS: L ACIDOPHIL/B LACTIS/B LONGUM CAPSULE PO SCH (21:00)
[2016-12-06] MEDS: AMPICILLIN 1 GM/NS (PMX) 50 ML IVPB SCH (21:33)
--- NOTE | 2016-12-06 22:34 | PN ---
DATE: 12/06/2016 SUBJECTIVE: No events overnight. The patient is awake, looks comfortable. No fevers. WBC today 8.4, platelets 213. No shift, no bands. BUN 6, creatinine 0.67. MICROBIOLOGY: Urine culture growing Proteus mirabilis and enterococcus species. Blood culture grow ing Proteus mirabilis. ANTIMICROBIALS: The patient is on: 1. Zyvox. 2. Oral vancomycin. 3. Meropenem. 4. Flagyl. PHYSICAL EXAMINATION: GENERAL: This is well-developed elderly man who is in no distress. HEENT: Head atraumatic, normocephalic. Sclerae anicteric. Buccal mucosa dry. NECK: Supple. Trachea midline. CHEST: Rise symmetrical. Breath sounds diminished to bases. HEART: S1, S2. ABDOMEN: Soft. Bowel tones present. EXTREMITIES: Without cyanosis. ASSESSMENT: 1. Sepsis with fevers and leukocytosis on admission. 2. Clostridium difficile colitis. 3. Urinary tract infection with bacteremia. 4. Anemia. 5. Atrial fibrillation. PLAN: The patient remains stable. Repeat blood cultures negative. We are going to change meropene m to Invanz once daily, change Zyvox to ampicillin. Continue oral vancomycin and Flagyl. Continue IV hydration. Dictated By: JAHAIRA BOND HEAD STOCK OPERATOR for LANA ROBERTS/TROY Conf#: [id number] DID#: [id number]
[2016-12-07] MEDS: ALBUTEROL 0.083% (NEB) 2.5 MG/3 ML AMP NEB SCH ×6 (01:00→21:00)
[2016-12-07 06:12] LABS: ADD SCAN DIFF NO
[2016-12-07 06:30] LABS: POTASSIUM 4.5 mmol/L (3.5-5.1)
[2016-12-07] MEDS: AMPICILLIN 1 GM/NS (PMX) 50 ML IVPB SCH ×3 (06:31→22:01)
[2016-12-07 06:32] LABS: CREATININE 0.66 mg/dl (0.61-1.24)
[2016-12-07 06:33] LABS: CALCIUM 7.8 mg/dl (8.4-10.2)
[2016-12-07] MEDS: LEVOTHYROXINE 75 MCG TAB PO SCH (06:35)
[2016-12-07] MEDS: GUAIFENESIN/DM 5ML CUP PO SCH ×3 (06:35→22:00)
[2016-12-07] MEDS: VANCOMYCIN HCL 250 MG/5ML POSYG PO SCH ×4 (06:42→19:54)
[2016-12-07 06:46] LABS: BASOPHILS % 0.3 % (0.0-2.0); EOSINOPHILS # 0.6 10^3/ul (0.0-0.5); EOSINOPHILS % 6.1 % (0.0-7.0); HEMATOCRIT 32.2 % (42.0-52.0); HEMOGLOBIN 10.7 g/dl (14.0-18.0); LYMPHOCYTES # 2.4 10^3/ul (0.8-2.9); LYMPHOCYTES % 25.1 % (15.0-51.0); MEAN CORPUSCULAR HEMOGLOBIN 30.9 pg (29.0-33.0); MEAN CORPUSCULAR HGB CONC 33.2 g/dl (32.0-37.0); MEAN CORPUSCULAR VOLUME 93.1 fl (82.0-101.0); MEAN PLATELET VOLUME 9.5 fl (7.4-10.4); MONOCYTE # 0.8 10^3/ul (0.3-0.9); MONOCYTES % 8.7 % (0.0-11.0); NEUTROPHIL # 5.5 10^3/ul (1.6-7.5); NEUTROPHILS % 57.4 % (39.0-77.0); NUCLEATED RED BLOOD CELLS% 0.2 /100WBC (0.0-0.0); PLATELET COUNT 239 10^3/UL (140-415); RED BLOOD COUNT 3.46 10^6/ul (4.70-6.10); WHITE BLOOD COUNT 9.6 10^3/ul (4.8-10.8)
[2016-12-07] MEDS: metroNIDAZOLE 500 MG/NS (PMX) 100 ML IVPB SCH ×3 (07:03→22:43)
[2016-12-07] MEDS: hydrALAzine 20 MG INJ IV PRN ×2 (07:04→11:00)
--- NOTE | 2016-12-07 07:28 | PN ---
Date/Time of Note Date/Time of Note DATE: 12/07/16 TIME: 07:27 Assessment/Plan VTE Prophylaxis VTE Prophylaxis Intervention: LMWH Lines/Catheters IV C[facility]ter Type (from [facility] Saline Lock Urinary Cath still in place: Yes Reason Cath still needed: other (indicate) Assessment/Plan Chief Complaint/Hosp Course 1. Sepsis secondary to underlying urinary tract infection, Proteus mirabilis bacteremia and Clostridium difficile colitis. Continue antibiotics as per infectious disease. 2. Acute encephalopathy in a patient with underlying dementia, most probably toxic metabolic in origin. CT scan of the brain negative for any acute findings. 3. Essential hypertension. The patient will be continued on antihypertensives. 4. Reported paroxysmal atrial fibrillation. Currently in sinus rhythm. The patient will be continued on beta blockers. 5. Hypothyroidism. Continue Synthroid. 6. Benign prostatic hypertrophy. Continue tamsulosin. 7. Chronic obstructive pulmonary disease. No active bronchospasms. Continue inhaled bronchodilators as needed. 8. Essential hypertension. Continue antihypertensives including p.r.n. antihypertensives. 9. Dyslipidemia. Continue statins. 10. Clostridium difficile colitis. Continue antimicrobials as per infectious diseases. Continue enteric precautions. 11. Fluid, electrolytes and nutrition. Soft diet. Aspiration precautions. 12. Deep venous thrombosis prophylaxis. Subcutaneous Lovenox. 13. Gastrointestinal prophylaxis. H2 receptor blockers. PLAN: Continue antimicrobials as per infectious diseases. Add AMBROSE inhibitors for better blood pressure control. The case was discussed with Dr. Montano. Problems: Subjective 24 Hr Interval Summary Free Text/Dictation The patient is awake and alert. Remains afebrile. Exam/Review of Systems Vital Signs Vitals Vital Signs Date Time Temp Pulse Resp B/P Pulse Ox O2 Delivery O2 Flow Rate FiO2 12/07/16 05:15 70 19 95 Nasal Cannula 2.0 12/06/16 21:43 160/70 12/06/16 20:14 99.0 12/06/16 13:15 21 Intake and Output 12/06/16 12/06/16 12/07/16 15:00 23:00 07:00 Intake Total 660 ml 970 ml 340 ml Output Total 400 ml 250 ml Balance 660 ml 570 ml 90 ml Exam GENERAL: This is an 89-year-old elderly male lying in bed in no apparent distress. HEENT: Head normocephalic and atraumatic. Eyes: Anicteric sclerae. Conjunctivae clear. ENT: Nasal septum is midline. Oral mucosa is dry. Poor dentition. NECK: Supple. No JVD noticed. RESPIRATORY: Bilaterally diminished breath sounds. No use of accessory muscles of respiration. CARDIAC: Regular rate and rhythm. S1 and S2 heard. ABDOMEN: Soft, nontender and nondistended. Bowel sounds positive in all 4 quadrants. GENITOURINARY: Deferred. EXTREMITIES: No cyanosis, no clubbing, no edema. Peripheral pulses are diminished bilaterally. NEUROLOGIC: The patient is awake and alert. Oriented 1-2. Results Result Diagram: 12/07/1652712/07/16527 Results 24 hrs Laboratory Tests Test 12/07/16 05:28 White Blood Count 9.6 Red Blood Count 3.46 L Hemoglobin 10.7 L Hematocrit 32.2 L Mean Corpuscular Volume 93.1 Mean Corpuscular Hemoglobin 30.9 Mean Corpuscular Hemoglobin Concent 33.2 Red Cell Distribution Width 15.0 H Platelet Count 239 Mean Platelet Volume 9.5 Neutrophils % 57.4 Lymphocytes % 25.1 Monocytes % 8.7 Eosinophils % 6.1 Basophils % 0.3 Nucleated Red Blood Cells % 0.2 H Neutrophils # 5.5 Lymphocytes # 2.4 Monocytes # 0.8 Eosinophils # 0.6 H Basophils # 0.0 Nucleated Red Blood Cells # 0.0 Sodium Level 139 Potassium Level 4.5 Chloride Level 113 H Carbon Dioxide Level 27 Anion Gap 4 L Blood Urea Nitrogen 7 Creatinine 0.66 Glucose Level 92 Calcium Level 7.8 L Magnesium Level 2.0 Medications Medications Current Medications Ondansetron HCl (Zofran Inj) 4 mg Q6H PRN IV NAUSEA AND/OR VOMITING; Start at 09:30 Acetaminophen (Tylenol Tab) 650 mg Q6H PRN PO PAIN LEVEL 1-3 OR FEVER Last administered on 12/02/16 00:45; Admin Dose 650 MG; Start 12/01/16 at 09:30 Atenolol (Tenormin) 50 mg DAILY PO Last administered on 12/06/16 09:24; Admin Dose 50 MG; Start 12/01/16 at 09:30 Atorvastatin Calcium (Lipitor) 10 mg QHS PO Last administered on 12/06/16 20: 32; Admin Dose 10 MG; Start 12/01/16 at 21:00 Gabapentin (Neurontin) 300 mg DAILY PO Last administered on 12/06/16 09:23; Admin Dose 300 MG; Start 12/02/16 at 09:00 Guaifenesin/ Dextromethorphan (Robitussin Dm Liquid Cup) 5 ml Q8 PO Last administered on 12/07/16 06:35; Admin Dose 5 ML; Start 12/01/16 at 14:00 Hydralazine HCl (Apresoline) 50 mg Q8 PO Last administered on 12/07/16 06:35; Admin Dose 50 MG; Start 12/01/16 at 14:00 Al Hydrox/Mg Hydrox/Simethicone (Mag-Al Plus) 30 ml QID PO Last administered on 12/06/16 20:32; Admin Dose 30 ML; Start 12/01/16 at 13:00 Mirtazapine (Remeron) 15 mg HS PO Last administered on 12/06/16 20:32; Admin Dose 15 MG; Start 12/01/16 at 21:00 Tamsulosin HCl 0.4 mg 0.4 mg DAILY PO Last administered on 12/06/16 09:23; Admin Dose 0.4 MG; Start 12/02/16 at 09:00 Metronidazole (Flagyl 500 Mg (Pmx)) 100 ml @ 100 mls/hr Q8 IVPB Last administered on 12/07/16 07:03; Admin Dose 100 MLS/HR; Start 12/02/16 at 14:00 Vancomycin HCl (Vancomycin Oral Syringe) 125 mg Q6 PO Last administered on 12/07 06:42; Admin Dose 125 MG; Start 12/03/16 at 18:00 Hydralazine HCl (Apresoline) 10 mg Q4H PRN IV sbp>160 Last administered on 12/07 07:04; Admin Dose 10 MG; Start 12/04/16 at 11:30 Nitroglycerin (Nitroglycerin (Sl Tab) 0.4 Mg) 1 tab Q5M PRN SL ANGINA Last administered on 12/04/16 17:10; Admin Dose 1 TAB; Start 12/04/16 at 17:00 Morphine Sulfate 2 mg 2 mg Q4H PRN IV pain Last administered on 12/06/16 15:51 ; Admin Dose 2 MG; Start 12/04/16 at 17:30 Ertapenem 1 gm/ Sodium Chloride 100 ml @ 200 mls/hr Q24H IVPB Last administered on 12/06/16 20:58; Admin Dose 200 MLS/HR; Start 12/06/16 at 20:00 Ampicillin (Ampicillin 1 Gm/ NS (Pmx)) 50 ml @ 100 mls/hr Q8 IVPB Last administered on 12/07/16 06:31; Admin Dose 100 MLS/HR; Start 12/06/16 at 22:00 Lactobacillus Acidophilus 1 each 1 each BID PO Last administered on 12/06/16 21:00; Admin Dose 1 EACH; Start 12/06/16 at 21:00 Sodium Chloride (NS) 500 ml @ 250 mls/hr Q2H ONCE IV ; Start 12/07/16 at 07:30 ; Stop 12/07/16 at 09:29; Status UNYULIA LEE NP December 07, 2016 07:28
[2016-12-07] MEDS ORDERED: SOD CHLORIDE 0.9% 500 ML IV ONE (07:30)
[2016-12-07 08:02] VITALS: BP 162/73; RESP 20
[2016-12-07] MEDS: AL HYDROX/MG HYDROX/SIMETH 30 ML CUP PO SCH ×5 (08:15→20:40)
[2016-12-07] MEDS: L ACIDOPHIL/B LACTIS/B LONGUM CAPSULE PO SCH ×2 (08:15→20:33)
[2016-12-07] MEDS: TAMSULOSIN (SR) 0.4 MG CAP PO SCH (08:15)
[2016-12-07] MEDS: GABAPENTIN 300 MG CAP PO SCH (08:16)
[2016-12-07] MEDS: ATENOLOL 50 MG TAB PO SCH (08:16)
[2016-12-07] MEDS: morphine 2 MG INJ IV PRN (08:17)
[2016-12-07] MEDS: BENAZEPRIL 10 MG TAB PO SCH ×2 (11:00→20:33)
--- NOTE | 2016-12-07 11:57 | PN ---
DATE: 12/07/2016 There is a family conference scheduled today with first degree family members. Ongoing issue to be discussed is patient's code status. That meeting is to take place at 10:30 at patient's room. It i s currently unknown which family members will participate in the meeting to be determined. Ronal jackson presented to [facility] with sepsis syndrome and is currently on IV antibiotics . He has improved generally from a cognitive standpoint and seems to be at baseline, which is mild to moderate dementia. I will discuss the family's understanding of his ongoing medical problems and discuss prognosis, probable chance of recurrent hospitalizations, their understanding hopes, accept able quality of life fears and strengths will be addressed also, and any communication issues that h ave occurred while patient has been hospitalized. IMPRESSION: My impressions are that this gentleman has a high probability of recurrent readmissions for cardiovascular problems or infectious disorders. His PPS is 60%. There are no pain or symptom issues to be addressed with family members. I will explore their psychosocial issues and legal iss ues as someone needs to make a decision on the patient's code status. Also, I will address a POLST form with family members. Dictated By: MARTA BARR MD, LP/TROY Conf#: [id number] DID#: [id number]
--- NOTE | 2016-12-07 19:27 | CONS ---
Date/Time of Note Date/Time of Note DATE: 12/07/16 TIME: 19:27 Assessment/Plan Assessment/Plan Chief Complaint/Hosp Course SUBJECTIVE: No events overnight. The patient is awake, looks comfortable. No fevers. MICROBIOLOGY: Urine culture growing Proteus mirabilis and enterococcus species. Blood culture growing Proteus mirabilis. Repeat bld cx 12/03 negative ANTIMICROBIALS: The patient is on: 1. Zyvox. 2. Oral vancomycin. 3. Invanz 4. Flagyl. 5. Ampicillin PHYSICAL EXAMINATION: GENERAL: This is well-developed elderly man who is in no distress. HEENT: Head atraumatic, normocephalic. Sclerae anicteric. Buccal mucosa dry. NECK: Supple. Trachea midline. CHEST: Rise symmetrical. Breath sounds diminished to bases. HEART: S1, S2. ABDOMEN: Soft. Bowel tones present. EXTREMITIES: Without cyanosis. ASSESSMENT: 1. Sepsis with fevers and leukocytosis on admission. 2. Clostridium difficile colitis. 3. Urinary tract infection with bacteremia. 4. Anemia. 5. Atrial fibrillation. PLAN: The patient remains stable. Repeat blood cultures negative. Continue abx [facility] staff Problems: Consultation Date/Type/Reason Admit Date/Time December 01, 2016 at 06:00 Initial Consult Date Type of Consultation: ID Exam/Review of Systems Vital Signs Vitals Vital Signs Date Time Temp Pulse Resp B/P Pulse Ox O2 Delivery O2 Flow Rate FiO2 12/07/16 18:24 97 2.0 28 12/07/16 18:24 76 20 Nasal Cannula 12/07/16 08:02 97.9 162/73 Intake and Output 12/06/16 12/06/16 12/07/16 15:00 23:00 07:00 Intake Total 660 ml 970 ml 340 ml Output Total 400 ml 250 ml Balance 660 ml 570 ml 90 ml Results Result Diagram: 12/07/16 0528 12/07/16 0528 Results 24 hrs Laboratory Tests Test 12/07/16 05:28 12/07/16 07:51 White Blood Count 9.6 Red Blood Count 3.46 L Hemoglobin 10.7 L Hematocrit 32.2 L Mean Corpuscular Volume 93.1 Mean Corpuscular Hemoglobin 30.9 Mean Corpuscular Hemoglobin Concent 33.2 Red Cell Distribution Width 15.0 H Platelet Count 239 Mean Platelet Volume 9.5 Neutrophils % 57.4 Lymphocytes % 25.1 Monocytes % 8.7 Eosinophils % 6.1 Basophils % 0.3 Nucleated Red Blood Cells % 0.2 H Neutrophils # 5.5 Lymphocytes # 2.4 Monocytes # 0.8 Eosinophils # 0.6 H Basophils # 0.0 Nucleated Red Blood Cells # 0.0 Sodium Level 139 Potassium Level 4.5 Chloride Level 113 H Carbon Dioxide Level 27 Anion Gap 4 L Blood Urea Nitrogen 7 Creatinine 0.66 Glucose Level 92 Calcium Level 7.8 L Magnesium Level 2.0 Bedside Glucose 72 Medications Medications Current Medications Ondansetron HCl (Zofran Inj) 4 mg Q6H PRN IV NAUSEA AND/OR VOMITING; Start at 09:30 Acetaminophen (Tylenol Tab) 650 mg Q6H PRN PO PAIN LEVEL 1-3 OR FEVER Last administered on 12/02/16 00:45; Admin Dose 650 MG; Start 12/01/16 at 09:30 Atenolol (Tenormin) 50 mg DAILY PO Last administered on 12/07/16 08:16; Admin Dose 50 MG; Start 12/01/16 at 09:30 Atorvastatin Calcium (Lipitor) 10 mg QHS PO Last administered on 12/06/16 20: 32; Admin Dose 10 MG; Start 12/01/16 at 21:00 Guaifenesin/ Dextromethorphan (Robitussin Dm Liquid Cup) 5 ml Q8 PO Last administered on 12/07/16 13:56; Admin Dose 5 ML; Start 12/01/16 at 14:00 Hydralazine HCl (Apresoline) 50 mg Q8 PO Last administered on 12/07/16 13:59; Admin Dose 50 MG; Start 12/01/16 at 14:00 Al Hydrox/Mg Hydrox/Simethicone (Mag-Al Plus) 30 ml QID PO Last administered on 12/06/16 20:32; Admin Dose 30 ML; Start 12/01/16 at 13:00 Mirtazapine (Remeron) 15 mg HS PO Last administered on 12/06/16 20:32; Admin Dose 15 MG; Start 12/01/16 at 21:00 Tamsulosin HCl 0.4 mg 0.4 mg DAILY PO Last administered on 12/07/16 08:15; Admin Dose 0.4 MG; Start 12/02/16 at 09:00 Metronidazole (Flagyl 500 Mg (Pmx)) 100 ml @ 100 mls/hr Q8 IVPB Last administered on 12/07/16 07:03; Admin Dose 100 MLS/HR; Start 12/02/16 at 14:00 Vancomycin HCl (Vancomycin Oral Syringe) 125 mg Q6 PO Last administered on 12/07 13:56; Admin Dose 125 MG; Start 12/03/16 at 18:00 Hydralazine HCl (Apresoline) 10 mg Q4H PRN IV sbp>160 Last administered on 12/07 11:00; Admin Dose 10 MG; Start 12/04/16 at 11:30 Nitroglycerin 1 tab 1 tab Q5M PRN SL ANGINA Last administered on 12/04/16 17: 10; Admin Dose 1 TAB; Start 12/04/16 at 17:00 Ertapenem/Sodium Chloride (Invanz/NS) 100 ml @ 200 mls/hr Q24H IVPB Last administered on 12/06/16 20:58; Admin Dose 200 MLS/HR; Start 12/06/16 at 20:00 Lactobacillus Acidophilus (Florajen3 Capsule) 1 each BID PO Last administered on 12/07/16 08:15; Admin Dose 1 EACH; Start 12/06/16 at 21:00 Benazepril HCl 10 mg 10 mg BID PO Last administered on 12/07/16 11:00; Admin Dose 10 MG; Start 12/07/16 at 09:00 Ampicillin (Ampicillin 1 Gm/ NS (Pmx)) 50 ml @ 100 mls/hr Q8H IVPB ; Start at 21:30 JAHAIRA BOND NP December 07, 2016 19:27 JAHAIRA BOND NP December 07, 2016 19:27
[2016-12-07 19:50] VITALS: BP 168/72; RESP 20
[2016-12-07] MEDS: MIRTAZAPINE 15 MG TAB PO SCH (20:33)
[2016-12-07] MEDS: ATORVASTATIN 10 MG TAB PO SCH (20:33)
[2016-12-07] MEDS: ERTAPENEM SODIUM 1 GM in SOD CHLORIDE 0.9% 100 ML IVPB SCH (20:50)
[2016-12-08] MEDS: hydrALAzine 20 MG INJ IV PRN ×3 (00:43→11:49)
[2016-12-08 01:30] VITALS: BP 165/80
[2016-12-08] MEDS: ALBUTEROL 0.083% (NEB) 2.5 MG/3 ML AMP NEB SCH ×3 (02:22→09:00)
[2016-12-08 02:30] VITALS: BP 158/70
[2016-12-08] MEDS: VANCOMYCIN HCL 250 MG/5ML POSYG PO SCH ×3 (06:01→11:48)
[2016-12-08] MEDS: GUAIFENESIN/DM 5ML CUP PO SCH (06:01)
[2016-12-08] MEDS: AMPICILLIN 1 GM/NS (PMX) 50 ML IVPB SCH (06:05)
[2016-12-08] MEDS: LEVOTHYROXINE 75 MCG TAB PO SCH (06:08)
[2016-12-08] MEDS: metroNIDAZOLE 500 MG/NS (PMX) 100 ML IVPB SCH (06:44)
[2016-12-08 06:46] VITALS: BP 172/77
[2016-12-08 06:48] LABS: ADD SCAN DIFF NO
[2016-12-08 07:05] LABS: HEMATOCRIT 33.3 % (42.0-52.0); HEMOGLOBIN 11.1 g/dl (14.0-18.0); MEAN CORPUSCULAR HEMOGLOBIN 30.8 pg (29.0-33.0); MEAN CORPUSCULAR HGB CONC 33.3 g/dl (32.0-37.0); MEAN CORPUSCULAR VOLUME 92.5 fl (82.0-101.0); WHITE BLOOD COUNT 9.3 10^3/ul (4.8-10.8)
[2016-12-08 07:07] LABS: PLATELET COUNT 145 10^3/UL (140-415)
[2016-12-08 07:25] LABS: CALCIUM 8.1 mg/dl (8.4-10.2); CREATININE 0.63 mg/dl (0.61-1.24); POTASSIUM 4.3 mmol/L (3.5-5.1)
[2016-12-08 07:58] VITALS: BP 188/80; RESP 20
[2016-12-08] MEDS: TAMSULOSIN (SR) 0.4 MG CAP PO SCH (08:39)
[2016-12-08] MEDS: L ACIDOPHIL/B LACTIS/B LONGUM CAPSULE PO SCH (08:39)
[2016-12-08] MEDS: AL HYDROX/MG HYDROX/SIMETH 30 ML CUP PO SCH ×2 (08:41→12:30)
[2016-12-08] MEDS: ATENOLOL 50 MG TAB PO SCH (08:41)
[2016-12-08] MEDS ORDERED: BENAZEPRIL 20 MG TAB PO SCH (09:00)
[2016-12-08 09:36] LABS: EOSINOPHILS # 0.8 10^3/ul (0.0-0.5); LYMPHOCYTES # 2.7 10^3/ul (0.8-2.9); MONOCYTE # 1.7 10^3/ul (0.3-0.9); NEUTROPHIL # 4.1 10^3/ul (1.6-7.5)
--- NOTE | 2016-12-08 09:47 | PDOCDIS ---
Discharge Instructions DIAGNOSIS Discharge Diagnosis: Sepsis with underlying urinary tract infection and C. difficile colitis. CONDITION Patient Condition: Stable HOME CARE INSTRUCTIONS: Special Diet: soft OTHER ORDERS: Other Orders: 1. Transfer to [facility] facility. 2. Medications as per medication reconciliation. 3. Low-cholesterol diet in soft form. Aspiration precautions. YULIA LEMUS NP Dec 08, 2016 09:47
[2016-12-08] MEDS ORDERED: Vancomycin Oral Syringe PO (09:49)
--- NOTE | 2016-12-08 11:11 | DS ---
DATE OF ADMISSION: 12/01/2016 DATE OF DISCHARGE: 12/08/2016 FINAL DIAGNOSES: 1. Sepsis secondary to underlying urinary tract infection, Proteus mirabilis bacteremia and Clostridium difficile colitis. 2. Acute encephalopathy: Resolved. 3. Essential hypertension. 4. Reported history of paroxysmal atrial fibrillation. 5. Hypothyroidism. 6. Benign prostatic hypertrophy. 7. Chronic obstructive pulmonary disease: Stable. 8. Dyslipidemia. 9. Clostridium difficile colitis. CONSULTATIONS: 1. Dr. Zachery Bishop, Infectious Disease. 2. Dr. Lisa Perez, Palliative Care. HOSPITAL COURSE: This is an 89-year-old male with multiple medical problems who is a detention resident who was brought in from longterm facility because of altered mentation as well as fevers. The patient also reportedly pulled out his Mandel catheter after he became confused and there was some bleeding from his penis. In the emergency room, the patient was noticed to have a temperature of 102.3 degrees Fahrenheit. The patient had lactic acidosis. Urinalysis was consistent with UTI. Provided, the patient's history of present illness, his comorbidities, and the diagnostic findings, a clinical decision was made to admit the patient to inpatient setting to have him further evaluated. The patient was admitted to inpatient medical/surgical floor. The patient was started on empiric antibiotics. Pancultures were ordered. An infectious disease consult was called. The patient's urine culture showed positive Proteus mirabilis and Enterococcus species. The patient had Proteus mirabilis bacteremia. The patient also had Clostridium difficile colitis. Hence, the patient was maintained on appropriate antibiotics as per Infectious Diseases. The patient had no evidence of any septic shock. The patient had confusion on top of underlying dementia. The patient underwent a CT scan of the brain that was negative for any acute findings. It was concluded that the patient's acute encephalopathy was most probably secondary to toxic metabolic encephalopathy from underlying sepsis. The patient has underlying essential hypertension. He was maintained on antihypertensives. The patient's antihypertensives were adjusted to obtain optimal blood pressure control. The patient has underlying dyslipidemia. He was maintained on statins for the same. He has underlying hypothyroidism. The patient was maintained on Synthroid. The patient also has underlying benign prostatic hypertrophy. He was maintained on tamsulosin for the same. The patient has history of chronic obstructive pulmonary disease. The patient was maintained on inhaled bronchodilators. The patient had no evidence of any active bronchospasms that required steroid use. The patient was maintained on a low- cholesterol, mechanical soft diet, and the patient was continued on aspiration precautions. The patient was evaluated by palliative care physician and the patient was made a DNR during the patient's hospital course. The patient had a stable hospital course. The patient was cleared by Infectious Disease to be discharged back to the longterm facility to be continued on antibiotics. DISCHARGE DISPOSITION/PLAN: The patient will be discharged to longterm facility. The patient will take medications as per medication reconciliation, which are listed below. The patient will follow a low cholesterol diet in soft format. The patient will be continued on aspiration precautions. CONDITION AT DISCHARGE: Stable. DISCHARGE MEDICATIONS: 1. Oral vancomycin 125 mg every 6 hours, last day 12/16/2016. 2. Flagyl 500 mg t.i.d. piggyback every 8 hours, last day 12/16/2016. 3. Ertapenem: 1 gram IV piggyback every 24 hours. Last day 12/19/2016. 5. Ampicillin 1 gram IV every 8 hours. Last dose 12/21/2016. 6. Albuterol nebulization 2.5 mg every 4 hours p.r.n. shortness of breath. 7. Atenolol 50 mg p.o. daily. 8. Atorvastatin 10 mg p.o. at bedtime. 9. Clonazepam 0.25 mg p.o. b.i.d. p.r.n. anxiety. 10. Gabapentin 300 mg p.o. daily. 11. Hydroxyzine 50 mg p.o. every 8 hours. 12. Synthroid 75 mcg p.o. before breakfast. 13. Remeron 15 mg p.o. at bedtime. 14. Multivitamins 1 tablet p.o. daily. 15. Tamsulosin 0.4 mg p.o. daily. 16. Ambien 5 mg p.o. at bedtime p.r.n. insomnia. PERTINENT LABORATORY AND DIAGNOSTIC DATA: 1. Brain CT scan: Chronic changes of atrophy and small vessel disease of the white matter. 2. Abdominal x-ray. Reflex ileus but no mechanical bowel obstruction is identified. 3. Latest chest x-ray from 5 to 8. Cardiomegaly. Low lung volumes with bibasilar atelectatic changes. 4. Blood culture x2 from 12/01/2016, 270 positive for Proteus mirabilis. 5. Repeat blood cultures x2 from 12/03/2016, negative. 6. Urine culture from 12/02/2016 positive for Proteus mirabilis and Enterococcus species. 7. Latest CBC: WBC 9.3, hemoglobin 11.1, hematocrit 33.3, platelet count 145. 8. Latest BMP: Sodium 139, potassium 4.3, chloride 112, carbon dioxide 25, anion gap 7, BUN 7, creatinine 7.63, Glucose 86, calcium 8.1, magnesium 2.13. 9. Stool for OB. Negative. 10. Stool for C. difficile positive. At this time, we would like to thank all the consultants for seeing the patient and providing clinical recommendations. The case and management of this patient was fully discussed with Dr. Montano. Approximately 35 minutes was spent on coordinating the discharge on this patient. YULIA MONTANO MD, AM/TROY Conf#: [id number] DID#: [id number] MTDD
--- NOTE | 2016-12-08 11:20 | PN ---
DATE: 12/08/2016 FAMILY CONFERENCE This is a postdated note for the patient's family conference was done 12/07/2016. In attendance ricardo troy patient's sister and 2 grandchildren, who are the only decision makers on the patient's behalf. W woodrow discussed patient's current medical problems, his pre-hospital medical problems, most importantly a history of dementia which was progressively worsening. I was asked to speak to family members to address patient's ongoing level of care and code status. Participants, once again, were as above. The voice for the family was primarily a granddaughter. Ba ckground history was obtained from family members, especially patient's medical condition which was deteriorating from a cognitive standpoint, and this gentleman require one hospitalization in the pas t, possibly 2, for other respiratory related problems. He has no understanding of his underlying me dical problems. He does recall being in a detention facility. Family members corroborate miguelangel t. Their hopes for acceptable quality of life for the patient were discussed and they do not want h im to live in a moribund condition on artificial ventilation and nutrition. We explored the clifford of cultural preferences. Communication was addressed with family members and all their concerns. G oals of care were discussed and it was clear that they would like to change his code status to DO NO T RESUSCITATE. This gentleman's estimated prognosis is poor. Palliative care performance scale is a 50% at best. Very high risk of rehospitalizations for sepsis syndrome. My recommendations are above to change his code status right now and in the event that this gentlema n has a sudden deterioration in his clinical condition or rehospitalization, that he should be treat ed just comfortably without aggressive intervention per family members. There are no pain or physic al symptoms or issues that should be addressed. Ethical or surrogate decision makers have offered u p any other recommendations for ongoing level of care. I recommend a post prior to discharge. I crawford ve changed his code status. Dictated By: MARTA BARR MD, LP/TROY Conf#: [id number] DID#: [id number]
--- NOTE | 2016-12-08 13:55 | CONS ---
Date/Time of Note Date/Time of Note DATE: 12/08/16 TIME: 13:54 Assessment/Plan Assessment/Plan Chief Complaint/Hosp Course SUBJECTIVE: No events overnight. The patient is awake, looks comfortable. No fevers. MICROBIOLOGY: Urine culture growing Proteus mirabilis and enterococcus species. Blood culture growing Proteus mirabilis. Repeat bld cx 12/03 negative ANTIMICROBIALS: The patient is on: 1. Zyvox. 2. Oral vancomycin. 3. Invanz 4. Flagyl. 5. Ampicillin PHYSICAL EXAMINATION: GENERAL: This is well-developed elderly man who is in no distress. HEENT: Head atraumatic, normocephalic. Sclerae anicteric. Buccal mucosa dry. NECK: Supple. Trachea midline. CHEST: Rise symmetrical. Breath sounds diminished to bases. HEART: S1, S2. ABDOMEN: Soft. Bowel tones present. EXTREMITIES: Without cyanosis. ASSESSMENT: 1. Sepsis with fevers and leukocytosis on admission. 2. Clostridium difficile colitis. 3. Urinary tract infection with bacteremia. 4. Anemia. 5. Atrial fibrillation. PLAN: The patient remains stable. Repeat blood cultures negative. Continue abx , pending SNF staff Problems: Consultation Date/Type/Reason Admit Date/Time December 01, 2016 at 06:00 Type of Consultation: ID Exam/Review of Systems Vital Signs Vitals Vital Signs Date Time Temp Pulse Resp B/P Pulse Ox O2 Delivery O2 Flow Rate FiO2 12/08/16 08:00 Nasal Cannula 2.0 12/08/16 07:58 98.3 71 20 188/80 98 12/07/16 18:24 28 Intake and Output 12/07/16 12/07/16 12/08/16 15:00 23:00 07:00 Intake Total 700 ml 630 ml 350 ml Output Total 400 ml 450 ml Balance 700 ml 230 ml -100 ml Results Result Diagram: 12/08/16 0634 12/08/16 0634 Results 24 hrs Laboratory Tests Test 12/08/16 06:34 White Blood Count 9.3 Red Blood Count 3.60 L Hemoglobin 11.1 L Hematocrit 33.3 L Mean Corpuscular Volume 92.5 Mean Corpuscular Hemoglobin 30.8 Mean Corpuscular Hemoglobin Concent 33.3 Red Cell Distribution Width 15.0 H Platelet Count 145 # Mean Platelet Volume 11.0 H Neutrophils % 44.0 Lymphocytes % 29.0 Monocytes % 18.0 H Eosinophils % 9.0 H Neutrophils # 4.1 Lymphocytes # 2.7 Monocytes # 1.7 H Eosinophils # 0.8 H Sodium Level 139 Potassium Level 4.3 Chloride Level 112 H Carbon Dioxide Level 24 Anion Gap 7 L Blood Urea Nitrogen 7 Creatinine 0.63 Glucose Level 86 Calcium Level 8.1 L Magnesium Level 2.1 JAHAIRA BOND NP Dec 08, 2016 13:55
== END 2016-12-08 13:00 | DRG 871 ==
LOC: E/R 03:25 → MS2 06:00
PROVIDERS: ADMIT Internal Medicine; ATTEND Internal Medicine
DX: A41.9 Sepsis, unspecified organism (principal); G92 Toxic encephalopathy; A04.7 Enterocolitis due to Clostridium difficile; I48.0 Paroxysmal atrial fibrillation; F03.90 Unspecified dementia, unspecified severity, without behavioral disturbance, psychotic disturbance, mood disturbance, and anxiety; N39.0 Urinary tract infection, site not specified; E03.9 Hypothyroidism, unspecified; B96.4 Proteus (mirabilis) (morganii) as the cause of diseases classified elsewhere; N40.0 Benign prostatic hyperplasia without lower urinary tract symptoms; J44.9 Chronic obstructive pulmonary disease, unspecified; E78.5 Hyperlipidemia, unspecified; I10 Essential (primary) hypertension; D64.9 Anemia, unspecified
CPT/HCPCS: 36415; 36600; 70450; 71010; 74000; 80048; 80053; 80061; 81001; 82270; 82803; 82962; 83036; 83605; 83735; 84100; 84484; 85025; 85610; 85730; 87040; 87075; 87086; 93005; 94640; 94664; 96365; 96366; 96375; 97162; 97166; J0360; J0692; J1335; J2185; J2270; J3370; J7030; J7040; J7050

== ENCOUNTER 2017-01-05 09:04 | Emergency (ER) | payer MEDICARE, OTHER ==
[~2017-01-05] VITALS: Ht 172.7 cm; Wt 70.0 kg
[~2017-01-05 09:04] MED LIST: ALBU2.5V3 NEB; ATEN50TA PO; ATOR10TA65 PO; CLON-429 PO; GABA300C16 PO; HYDR-3672 PO; LEVO75TA5 PO; MIRT15TA PO; MULT-105 PO; TAMS0.4C2 PO; UDROBDM PO; Vancomycin Oral Syringe PO; ZOLP5TAB7 PO
[2017-01-05 09:10] VITALS: Ht 172.7 cm; Wt 70.0 kg
[2017-01-05] MEDS ORDERED: morphine 4 MG/ML VIAL IV STA ×2 (09:11→12:28)
[2017-01-05] MEDS ORDERED: ONDANSETRON 4 MG INJ IV STA ×2 (09:11→12:28)
[2017-01-05] MEDS ORDERED: SOD CHLORIDE 0.9% 500 ML IV STA (09:11)
[2017-01-05] MEDS ORDERED: MIRT30TA PO (09:26)
[2017-01-05] MEDS ORDERED: AMIN30LI5 PO (09:29)
[2017-01-05] MEDS ORDERED: ACET-2047 PO (09:30)
[2017-01-05] MEDS ORDERED: BENA20TA48 PO (09:31)
[2017-01-05] MEDS ORDERED: LACT1CAP57 PO (09:31)
[2017-01-05 09:32] LABS: ADD SCAN DIFF NO
[2017-01-05] MEDS ORDERED: NIT4 SL (09:32)
[2017-01-05 09:36] LABS: BASOPHILS % 0.1 % (0.0-2.0); EOSINOPHILS % 0.2 % (0.0-7.0); HEMATOCRIT 43.6 % (42.0-52.0); HEMOGLOBIN 14.8 g/dl (14.0-18.0); LYMPHOCYTES # 2.1 10^3/ul (0.8-2.9); LYMPHOCYTES % 19.1 % (15.0-51.0); MEAN CORPUSCULAR HEMOGLOBIN 31.8 pg (29.0-33.0); MEAN CORPUSCULAR HGB CONC 33.9 g/dl (32.0-37.0); MEAN CORPUSCULAR VOLUME 93.8 fl (82.0-101.0); MEAN PLATELET VOLUME 9.6 fl (7.4-10.4); MONOCYTE # 0.5 10^3/ul (0.3-0.9); MONOCYTES % 4.2 % (0.0-11.0); NEUTROPHIL # 8.4 10^3/ul (1.6-7.5); PLATELET COUNT 254 10^3/UL (140-415); RED BLOOD COUNT 4.65 10^6/ul (4.70-6.10); RED CELL DISTRIBUTION WIDTH 15.6 % (11.5-14.5); WHITE BLOOD COUNT 11.1 10^3/ul (4.8-10.8)
[2017-01-05] MEDS ORDERED: [UNRECOGNIZED DRUG - CODE] PO (09:41)
--- NOTE | 2017-01-05 09:48 | ERA ---
ER Documentation Chief Complaint Date/Time DATE: 01/05/17 TIME: 09:39 Chief Complaint Epigastric pain with vomiting. HPI 89-year-old male history of mild dementia who presents to the emergency room complaining of abdominal pain. He describes epigastric and abdominal discomfort with associated dysuria and scant hematuria for approximately 24 hours. The patient denies any fevers or chills he denies any chest pain or low back pain. His blood pressure is noted to be elevated but this is consistent with prior history of hypertension. No nausea vomiting or diarrhea, no constipation. Remainder of HPI is somewhat limited given the patient's level of dementia. ROS All systems reviewed and are negative except as per history of present illness. Medications Home Meds Reported Medications Milk Based Formula/[place] Starch (RESOURCE DAIRY THICK LIQUID) 237 Ml Liquid, 120 ML PO BID 01/05/17 Nitroglycerin* (Nitrostat*) 0.4 Mg Tab.subl, 0.4 MG SL Q5MIN Y for CHEST PAIN, BOTTLE 01/05/17 Lactobacillus Rhamnosus* (Culturelle*) 1 Each Cap.sprink, 1 CAP PO BID, CAP 01/05/17 Benazepril Hcl* (Benazepril Hcl*) 20 Mg Tablet, 20 MG PO BID, #60 TAB HOLD IF SBP LOW THAN 110 01/05/17 Acetaminophen* (Acetaminophen*) 650 Mg Tablet, 650 MG PO Q6H Y for PAIN AND OR ELEVATED TEMP, #30 TAB 01/05/17 Amino Acids/Protein Hydrolys (Pro-Stat Awc Liquid) 30 Ml Liquid, 30 ML PO DAILY 01/05/17 Mirtazapine* (Remeron*) 30 Mg Tablet, 30 MG PO HS, TAB 01/05/17 Levothyroxine Sodium* (Levothyroxine Sodium*) 75 Mcg Tablet, 75 MCG PO BEFORE BREAKFAST, #30 TAB 12/01/16 Multivitamin with Minerals (Multivitamins with Minerals) 1 Each Tablet, 1 EACH PO, TAB 12/01/16 Hydralazine Hcl* (Hydralazine Hcl*) 50 Mg Tab, 50 MG PO Q8, #90 TAB 12/01/16 Atenolol* (Atenolol*) 50 Mg Tablet, 50 MG PO DAILY, #30 TAB 12/01/16 Atorvastatin Calcium (Atorvastatin Calcium) 10 Mg Tablet, 10 MG PO QHS for HYPERLIPIDEMIA, #30 TAB 12/01/16 Tamsulosin Hcl* (Tamsulosin Hcl*) 0.4 Mg Cap.er.24h, 0.4 MG PO DAILY, CAP 12/01/16 Gabapentin* (Gabapentin*) 300 Mg Capsule, 300 MG PO DAILY, #60 CAP 12/01/16 Guaifenesin-Dextromethorphan* (Robitussin* DM) 100MG/10MG/5ML Syrup, 5 ML PO Q8 , ML 12/01/16 Zolpidem Tartrate* (Zolpidem Tartrate*) 5 Mg Tablet, 5 MG PO QHS Y for INSOMNIA , #30 TAB 12/01/16 Albuterol Sulfate* (Albuterol Sulfate* Neb) 0.083%-3 Ml Neb, 2.5 MG NEB Q4H for SHORTNESS OF BREATH, #30 VIAL 12/01/16 Clonazepam* (Klonopin*) 0.5 Mg Tab, 0.25 MG PO BID for ANXIETY, TAB 12/01/16 Discontinued Reported Medications Mirtazapine* (Remeron*) 15 Mg Tablet, 15 MG PO HS for DEPRESSION , TAB 12/01/16 Discontinued Scripts [Vancomycin Oral Syringe] 50 MG/ML SOLN No Conflict Check, 125 MG PO Q6 for 10 Days Prov:YULIA LEMUS [employer] 12/08/16 Allergies Allergies: Coded Allergies: amlodipine (Verified Allergy, Unknown, 01/05/17) caffeine (Verified Allergy, Unknown, 01/05/17) PMhx/Soc History of Surgery: No Anesthesia Reaction: No (UNKNOWN) Hx Neurological Disorder: No Hx Respiratory Disorders: Yes (COPD,PNEUMONIA) Hx Cardiac Disorders: Yes (HTN, AFIB) Hx Psychiatric Problems: Yes (DEMENTIA) Hx Miscellaneous Medical Probl: Yes (afib,htn, COPD< hypothyroidism,anxiety,BPH ,dementia) Hx Alcohol Use: No Hx Substance Use: No Hx Tobacco Use: No Smoking Status: Never smoker FmHx Family History: No diabetes Physical Exam Vitals Vital Signs Date Time Temp Pulse Resp B/P Pulse Ox O2 Delivery O2 Flow Rate FiO2 01/05/17 10:46 64 16 171/65 95 Room Air 01/05/17 09:10 80 20 211/74 96 Room Air 01/05/17 09:10 99.0 88 20 199/88 96 Physical Exam General: Well developed, well nourished, no acute distress Head: Normocephalic, atraumatic. Eyes: Pupils equally reactive, EOM intact ENT: Moist mucous membranes Neck: Supple, no lymphadenopathy Respiratory: Lungs clear bilaterally, no distress Cardiovascular: RRR, no murmurs, rubs, or gallops Abdominal: Soft, mild diffuse tenderness without rebound or guarding, worse with epigastrium, no tenderness to McBurney's point, negative Robb sign, no pulsatile mass, non-distended, no peritoneal signs : Mandel catheter in place MSK: No edema, no unilateral swelling, 5/5 strength Neurologic: Alert and oriented, moving all extremities, normal speech, no focal weakness, no cerebellar signs Skin: No rash Psych: Normal mood Result Diagram: 01/05/1791401/05/1715 Results 24 hrs Laboratory Tests Test 01/05/17 09:11 01/05/17 09:15 Urine Color DK. YELLOW Urine Clarity CLOUDY Urine pH 8.5 Urine Specific [place] 1.015 Urine Ketones 1+ Urine Nitrite POSITIVE Urine Bilirubin 1+ Urine Ictotest NEGATIVE Urine Urobilinogen 1.0 E.U./dL Urine Leukocyte Esterase 3+ Urine Microscopic RBC 10-25/HPF Urine Microscopic WBC 10-25/HPF Urine Squamous Epithelial Cells FEW/HPF Urine Triple Phosphate Crystals FEW/HPF Urine Bacteria MODERATE/HPF Urine Hyaline Casts RARE/HPF Urine Hemoglobin 3+ Urine Glucose NEGATIVE% Urine Total Protein 4+ White Blood Count 11.110^3/ul Red Blood Count 4.6510^6/ul Hemoglobin 14.8g/dl Hematocrit 43.6% Mean Corpuscular Volume 93.8fl Mean Corpuscular Hemoglobin 31.8pg Mean Corpuscular Hemoglobin Concent 33.9g/dl Red Cell Distribution Width 15.6% Platelet Count 46876^3/UL Mean Platelet Volume 9.6fl Neutrophils % 76.0% Lymphocytes % 19.1% Monocytes % 4.2% Eosinophils % 0.2% Basophils % 0.1% Nucleated Red Blood Cells % 0.0/100WBC Neutrophils # 8.410^3/ul Lymphocytes # 2.110^3/ul Monocytes # 0.510^3/ul Eosinophils # 0.010^3/ul Basophils # 0.010^3/ul Nucleated Red Blood Cells # 0.010^3/ul Prothrombin Time 13.9Sec Prothrombin Time Ratio 1.1 INR International Normalized Ratio 1.07 Activated Partial Thromboplast Time 29.7Sec Sodium Level 137mmol/L Potassium Level 4.9mmol/L Chloride Level 104mmol/L Carbon Dioxide Level 19mmol/L Anion Gap 19 Blood Urea Nitrogen 18mg/dl Creatinine 0.99mg/dl Glucose Level 112mg/dl Calcium Level 9.8mg/dl Total Bilirubin 0.6mg/dl Direct Bilirubin 0.00mg/dl Indirect Bilirubin 0.6mg/dl Aspartate Amino Transf (AST/SGOT) 41IU/L Alanine Aminotransferase (ALT/SGPT) 22IU/L Alkaline Phosphatase 68IU/L Troponin I < 0.012ng/ml Total Protein 8.0g/dl Albumin 4.7g/dl Globulin 3.30g/dl Albumin/Globulin Ratio 1.42 Lipase 29U/L Current Medications Medications (Trade) Dose Ordered Sig/[place] Route PRN Reason Start Time Stop Time Status Last Admin Dose Admin Sodium Chloride (NS) 500 ml @ 500 mls/hr Q1H STAT IV 01/05/17 09:11 01/05/17 10:10 DC 01/05/17 09:49 Morphine Sulfate (morphine) 4 mg ONCE STAT IV 01/05/17 09:11 01/05/17 09:13 DC 01/05/17 09:49 Ondansetron HCl 4 mg 4 mg ONCE STAT IV 01/05/17 09:11 01/05/17 09:13 DC 01/05/17 09:49 Ceftriaxone Sodium (Rocephin) 50 ml @ 100 mls/hr ONCE ONCE IVPB 01/05/17 11:00 01/05/17 11:29 DC 01/05/17 11:15 Procedures/MDM EKG, MONITORS, & DIAGNOSTIC IMAGING: EKG: I reviewed and interpreted a 12-lead EKG. Rhythm: Normal sinus rhythm Ectopy: None Intervals: No abnormalities ST segments: No elevations or depressions T waves: No contiguous inversions CT abdomen and pelvis: IMPRESSION: Diffuse fluid filled small bowel can be seen with ileus and enteritis in the appropriate clinical setting Circumferential rectal wall thickening is nonspecific but can be seen with proctitis. If warranted, consider future follow up with sigmoidoscopy. Colonic diverticulosis. Moderate to large hiatal hernia. Small right pleural effusion with bibasilar atelectasis. Normal-caliber appendix. No renal or ureteral stone identified. Tubing material seen in the perineal region with tip not in the bladder. Circumferential wall thickening of the bladder seen with intravesical air. Recommend correlation for possible malpositioned Mandel catheter. RPTAT: AA LAB INTERPRETATION: No significant leukocytosis, urinary tract infection MEDICAL DECISION MAKING: The patient presents to the emergency room with abdominal pain hematuria and dysuria. Given the patient's age there is a very broad differential that includes urinary tract infection. However, additionally this includes intra- abdominal process such as bowel obstruction, constipation, acute appendicitis, hepatobiliary process. There is a low clinical concern for aortic process such as dissection or aneurysm. The patient is hypertensive but I believe this is secondary to pain response, additionally it is unclear if the patient received his blood pressure medication this morning. Continue to monitor response with pain control. I do not believe a CT is necessary at this time. The patient will benefit from laboratory testing and diagnostic imaging, low threshold for hospitalization given the patient's age. ER COURSE: The patient has a UTI. The patient continues to be well-appearing, CT imaging shows evidence of possible colitis versus inflammatory process but the patient does not have evidence of colitis or proctitis. The patient was given ceftriaxone for UTI and I believe outpatient management would be appropriate. I spoke to the covering provider Dr. Jo who agrees with the plan of care. Patient discharged with Keflex. Mandel catheter was exchanged and repositioned I kept the patient and/or family informed of laboratory and diagnostic imaging results throughout the emergency room course. DISPOSITION PLAN: We discussed follow up with the patient's primary care doctor within 24 to 48 hours as needed. We also discussed return to the emergency room for worsening symptoms or worsening condition. Outpatient referral: [None required] Discharge Medications: Keflex Departure Diagnosis: Primary Impression: Abdominal pain Qualified Code: R10.84 - Generalized abdominal pain Additional Impression: Urinary tract infection Qualified Code: N30.00 - Acute cystitis without hematuria Condition: Stable LIZ BENNETT MD Jan 05, 2017 09:48
[2017-01-05 09:54] LABS: INR 1.07; PARTIAL THROMBOPLASTIN TIME 29.7 Sec (25.0-35.0); PROTIME 13.9 Sec (12.2-14.2); PT RATIO 1.1
[2017-01-05 09:58] LABS: ALANINE AMINOTRANSFERASE 22 IU/L (13-69); ALBUMIN 4.7 g/dl (3.3-4.9); ALBUMIN/GLOBULIN RATIO 1.42; ALKALINE PHOSPHATASE 68 IU/L (42-121); ANION GAP 19 (8-16); ASPARTATE AMINO TRANSFERASE 41 IU/L (15-46); BILIRUBIN,INDIRECT 0.6 mg/dl (0-1.1); BILIRUBIN,TOTAL 0.6 mg/dl (0.2-1.3); BLOOD UREA NITROGEN 18 mg/dl (7-20); CALCIUM 9.8 mg/dl (8.4-10.2); CARBON DIOXIDE 19 mmol/L (21-31); CHLORIDE 104 mmol/L (97-110); CREATININE 0.99 mg/dl (0.61-1.24); GLUCOSE 112 mg/dl (70-220); POTASSIUM 4.9 mmol/L (3.5-5.1); SODIUM 137 mmol/L (135-144)
[2017-01-05 10:01] LABS: ADD UMIC YES; UR BILIRUBIN (Dip) 1+ (NEGATIVE); UR BLOOD (Dip) 3+ (NEGATIVE); UR CLARITY CLOUDY (CLEAR); UR COLOR DK. YELLOW (YELLOW); UR GLUCOSE (Dip) NEGATIVE (NEGATIVE); UR KETONES (Dip) 1+ (NEGATIVE); UR LEUKOCYTE ESTERASE (Dip) 3+ (NEGATIVE); UR NITRITE (Dip) POSITIVE (NEGATIVE); UR TOTAL PROTEIN (Dip) 4+ (NEGATIVE); UR UROBILINOGEN (Dip) 1.0 E.U./dL (0.1-1.0)
[2017-01-05 10:16] LABS: TROPONIN-I < 0.012 ng/ml (0.00-0.12)
[2017-01-05 10:18] LABS: UR TRIPLE PHOSPHATE CRYSTAL FEW /HPF (NONE SEEN)
[2017-01-05 10:19] LABS: UR BACTERIA MODERATE /HPF (NONE SEEN); UR SQUAMOUS EPITHELIAL CELL FEW /HPF (FEW)
[2017-01-05 10:23] LABS: ICTOTEST NEGATIVE (NEGATIVE)
--- NOTE | 2017-01-05 10:27 | RADRPT ---
PROCEDURE: CT Abdomen and Pelvis without contrast. CLINICAL INDICATION: Abdominal pain TECHNIQUE: CT scan of the abdomen and pelvis was performed on a multidetector high-resolution CT s Levels [place] without intravenous contrast. Coronal and sagittal reformatted images were obtained from the axial source images. Images were reviewed on a high-resolution PACS workstation. The total exam CTD I equals 18mGy and the total exam DLP equals 1198mGy-cm. One or more of the following dose reduction techniques were used: Automated exposure control, Adjustment of the mA and/or kV according to patie nt size, and/or use of iterative reconstruction technique. COMPARISON: None. FINDINGS: Evaluation of the solid organs is limited given the lack of intravenous contrast administration. Small right pleural effusion with bibasilar atelectasis. Cardiomegaly. Coronary arterial and aorti c atherosclerosis. Moderate to large hiatal hernia. The liver, pancreas, spleen, and adrenals are grossly unremarkable. No focal pericholecystic inflammatory changes. No hydronephrosis. No renal or ureteral stone. Circumferential rectal wall thickening. Colonic diverticulosis. Normal-caliber appendix. Diffuse fluid filled small bowel. No significant retroperitoneal lymphadenopathy, ascites or evidence of pneumoperitoneum. Aortoiliac atherosclerosis. Tubing material seen in the perineal region with tip not in the bladder. Circumferential wall thickening lobe bladder is seen with intravesical air. Degenerative changes of the spine. Grade 1 anterolisthesis L4-5 with moderate to severe spinal canal stenosis. IMPRESSION: Diffuse fluid filled small bowel can be seen with ileus and enteritis in the appropriate clinical se tting Circumferential rectal wall thickening is nonspecific but can be seen with proctitis. If warranted, consider future follow up with sigmoidoscopy. Colonic diverticulosis. Moderate to large hiatal hernia. Small right pleural effusion with bibasilar atelectasis. Normal-caliber appendix. No renal or ureteral stone identified. Tubing material seen in the perineal region with tip not in the bladder. Circumferential wall thicke kavya of the bladder seen with intravesical air. Recommend correlation for possible malpositioned Fol ey catheter. RPTAT: AA .Eric De La Rosa MD, MD Date Time Electronically viewed and signed by .Eric De La Rosa MD, MD on 01/05/2017 10:26 .T/
[2017-01-05] MEDS ORDERED: CEFTRIAXONE 1 GM/50 ML (PMX) 50 ML IVPB ONE (11:00)
[2017-01-05] MEDS ORDERED: CEPH-443 PO (11:44)
[2017-01-05 12:48] VITALS: BP 145/64; PULSE 87; RESP 22; TEMP 98.2
== END 2017-01-05 12:56 | disposition home or self-care (01) ==
LOC: E/R 09:04
DX: R10.84 Generalized abdominal pain (principal); N30.00 Acute cystitis without hematuria; I10 Essential (primary) hypertension; J44.9 Chronic obstructive pulmonary disease, unspecified; E03.9 Hypothyroidism, unspecified; R40.2142 Coma scale, eyes open, spontaneous, at arrival to emergency department; R40.2362 Coma scale, best motor response, obeys commands, at arrival to emergency department; R40.2252 Coma scale, best verbal response, oriented, at arrival to emergency department
CPT/HCPCS: 74176; 80053; 81001; 83690; 84484; 85025; 85610; 85730; 87086; 93005; J0696; J2270; J2405; J7040; 36415; 96374; 96375; 96376